=== PATIENT | female | born 1980 | race African-American/Black ===

== ENCOUNTER 2016-06-26 09:45 | Emergency (ER) | payer OTHER ==
[2016-06-26 10:09] VITALS: BP 134/75; PULSE 82; TEMP 98.7; BMI 28.6
[2016-06-26] MEDS ORDERED: IBUPROFEN 600 MG TABLET (FP) PO ONE ×2 (11:22→11:26)
--- NOTE | 2016-06-26 12:56 | PDOC ---
[id number] 4d THROAT PAIN, HEADACHE Time Seen by Provider: 06/26/16 11:03 History Source: Patient Exam Limitations: No Limitations - History of Present Illness Initial Comments: 06/26/16 13:31 36 yr female with c/o sore throat and sinus congestion for 3 days no fever or chills. Severity: mild Associated Symptoms: reports: cough Past History - Past Medical History Allergies/Adverse Reactions: Allergies Allergy/AdvReac Type Severity Reaction Status Date / Time No Known Allergies Allergy Verified 06/26/16 10:09 Home Medications: Ambulatory Orders Fluticasone Prop 0.05% Nasal [Flonase -] 1 - 2 spray NS DAILY #1 spray.pump Asthma: Yes - Psycho/Social/Smoking Cessation Hx Anxiety: No Suicidal Ideation: No Smoking Status: Yes Smoking History: Current every day smoker Have you smoked in the past 12 months: Yes Number of Cigarettes Smoked Daily: 10 Information on smoking cessation initiated: No 'Breaking Loose' booklet given: 04/09/16 Hx Alcohol Use: No Drug/Substance Use Hx: No Review of Systems - Review of Systems Able to Perform ROS?: Yes Is the patient limited Romanian proficient: No Constitutional: No: Symptoms Reported HEENTM: Yes: See HPI Respiratory: Yes: See HPI *Physical Exam - Vital Signs Last Vital Signs Temp Pulse Resp BP Pulse Ox 98.7 F 82 20 134/75 99 06/26/16 10:07 06/26/16 10:07 06/26/16 10:07 06/26/16 10:07 06/26/16 10:07 - Physical Exam General Appearance: Yes: Nourished, Appropriately Dressed HEENT: positive: EOMI, FRANCISCO, Normal ENT Inspection, TMs Normal, Pharynx Normal, Tonsillar Erythema, Nasal Congestion, Sinus Tenderness Neck: positive: Supple. negative: Lymphadenopathy (R), Lymphadenopathy (L) Respiratory/Chest: positive: Lungs Clear, Normal Breath Sounds Cardiovascular: positive: Regular Rhythm, Regular Rate Gastrointestinal/Abdominal: positive: Normal Bowel Sounds, Soft Musculoskeletal: positive: Normal Inspection Extremity: positive: Normal Capillary Refill, Normal Inspection, Normal Range of Motion Integumentary: positive: Normal Color, Dry, Warm Neurologic: positive: Fully Oriented, Alert, Normal Mood/Affect, Normal Response , Motor Strength / ED Treatment Course - ADDITIONAL ORDERS Additional order review: 06/26/16 11:30 Group A Strep Rapid Antigen - Final Throat - Medications Given in the ED: ED Medications Discontinued Medications Generic Name Dose Route Start Last Admin Trade Name Lino PRN Reason Stop Dose Admin Ibuprofen 600 mg 06/26/16 11:22 06/26/16 11:30 Motrin - PO 06/26/16 11:23 600 mg ONCE ONE Administration Medical Decision Making - Medical Decision Making 06/26/16 13:34 cc: sinus congestion, sinus tenderness, sore throat neg fever, neg nasal discharge, body aches for 3 days will check for strep non toxic *DC/Admit/Observation/Transfer Diagnosis at time of Disposition: Pharyngitis Qualifiers: Pharyngitis/tonsillitis etiology: other specified organisms Qualified Code(s): J02.8 - Acute pharyngitis due to other specified organisms - Discharge Dispostion Disposition: HOME Condition at time of disposition: Good - Prescriptions Prescriptions: Fluticasone Prop 0.05% Nasal [Flonase -] 1 - 2 spray NS DAILY #1 spray.pump - Referrals Referrals: Anai Lucio MD [Primary Care Provider] - - Patient Instructions Additional Instructions: drink pleanty of fluids to stay hydrated get pleanty of rest at home take motrin 600mg every 6hrs for fever or pain use flonase nasal spray as directed for nasal congestion and sinus pressure follow with your doctor in 2-3 days if no improvement - Post Discharge Activity Work/School Note: Back to Work
== END 2016-06-26 12:58 | disposition home or self-care (01) ==
LOC: JERFT 09:45
DX: J02.8 Acute pharyngitis due to other specified organisms (principal); F17.210 Nicotine dependence, cigarettes, uncomplicated; J45.909 Unspecified asthma, uncomplicated
CPT/HCPCS: 87070; 87430; 99281-25

== ENCOUNTER 2016-09-15 20:06 | Emergency (ER) | payer OTHER ==
[2016-09-15 20:13] VITALS: BMI 29.7
[2016-09-15 20:35] LABS: BASOPHIL 0.5 % (0-2.0); EOSINOPHIL 1.4 % (0-4.5); MCH 28.6 pg (25.7-33.7); MCHC 32.7 g/dl (32.0-36.0); MEAN CELL VOLUME 87.4 fl (80-96); MEAN PLT VOLUME 8.7 fl (7.5-11.1); NEUTROPHILS 73.9 % (42.8-82.8); PLATELET COUNT 249 K/MM3 (134-434); WHITE BLOOD COUNT 9.9 K/mm3 (4.0-10.0)
[2016-09-15 20:43] LABS: URINE APPEARANCE SLCLOUDY; URINE BILIRUBIN NEGATIVE (NEGATIVE); URINE COLOR YELLOW; URINE GLUCOSE (UA) NEGATIVE (NEGATIVE); URINE KETONE NEGATIVE (NEGATIVE); URINE NITRITE NEGATIVE (NEGATIVE); URINE UROBILINOGEN NEGATIVE E.U./dl (0.2-1.0)
[2016-09-15 20:44] LABS: URINE BLOOD 3+ (NEGATIVE); URINE LEUK ESTERASE TRACE (NEGATIVE); URINE PROTEIN 1+ (NEGATIVE)
[2016-09-15 20:47] LABS: URINE MUCUS RARE; URINE RBC 6 /hpf (0-3); URINE WBC 4 /hpf (3-5)
[2016-09-15 21:10] LABS: ALBUMIN 3.6 g/dl (3.4-5.0); ANION GAP 10 (8-16); BILIRUBIN,TOTAL 0.2 mg/dL (0.2-1.0); CALCIUM 8.4 mg/dL (8.5-10.1); CO2 24 mmol/L (21-32); CREATININE 0.6 mg/dL (0.55-1.02); GLUCOSE,RANDOM 81 mg/dL (74-106); SGOT/AST 9 U/L (15-37); SGPT/ALT 14 U/L (12-78); TOT PROT 6.9 g/dl (6.4-8.2)
[2016-09-15 21:25] LABS: ALK PHOS 57 U/L (45-117)
--- NOTE | 2016-09-15 23:25 | PDOC ---
History of Present Illness <Lynsey Stanton - Last Filed: 09/16/16 00:59> - General History Source: Patient Exam Limitations: No Limitations - History of Present Illness Initial Comments: 09/16/16 00:16 Patient is a 36 year old female, 6 weeks , with a significant past medical history of asthma and fibroids who presents to the ED with vaginal bleeding. She states that she was grocery shopping today and picked up her shopping bags as she was carrying them up the stairs she felt a moisture on her underwear. She notes that she rushed into the bathroom and notices that her underwear had blood on them. She reports abdominal cramps. She has prior history of vaginal bleeding due to her fibroids. She has an [facility]IL[facility] appointment in [address] Gupta <Lisa Medeiros - Last Filed: 09/16/16 01:02> - General Chief Complaint: Vaginal Bleeding Stated Complaint: 7WKS/VAGINAL BLEEDING Time Seen by Provider: 09/15/16 20:28 Past History - Past Medical History Asthma: Yes - Psycho/Social/Smoking Cessation Hx Anxiety: No Suicidal Ideation: No Smoking Status: Yes Smoking History: Current every day smoker Have you smoked in the past 12 months: Yes Number of Cigarettes Smoked Daily: 10 Information on smoking cessation initiated: No 'Breaking Loose' booklet given: 04/09/16 Hx Alcohol Use: No Drug/Substance Use Hx: No <Lynsey Stanton - Last Filed: 09/16/16 00:59> <Lisa Medeiros - Last Filed: 09/16/16 01:02> - Past Medical History Allergies/Adverse Reactions: Allergies Allergy/AdvReac Type Severity Reaction Status Date / Time No Known Allergies Allergy Verified 09/15/16 20:12 Home Medications: Ambulatory Orders Fluticasone Prop 0.05% Nasal [Flonase -] 1 - 2 spray NS DAILY #1 spray.pump Review of Systems - Review of Systems Able to Perform ROS?: Yes Comments:: 09/16/16 00:17 GENERAL/CONSTITUTIONAL: No fever or chills. No weakness. HEAD, EYES, EARS, NOSE AND THROAT: No change in vision. No ear pain or discharge. No sore throat. CARDIOVASCULAR: No chest pain or shortness of breath. RESPIRATORY: No cough, wheezing, or hemoptysis. GASTROINTESTINAL: No nausea, vomiting, diarrhea or constipation. GENITOURINARY: +vaginal bleeding. No dysuria, frequency, or change in urination. MUSCULOSKELETAL: No joint or muscle swelling or pain. No neck or back pain. SKIN: No rash NEUROLOGIC: No headache, vertigo, loss of consciousness, or change in strength/ sensation. ENDOCRINE: No increased thirst. No abnormal weight change. HEMATOLOGIC/LYMPHATIC: No anemia, easy bleeding, or history of blood clots. ALLERGIC/IMMUNOLOGIC: No hives or skin allergy. <Lisa Medeiros - Last Filed: 09/16/16 01:02> *Physical Exam - Vital Signs Last Vital Signs Temp Pulse Resp BP Pulse Ox 98.6 F 93 H 18 117/57 99 09/15/16 20:12 09/15/16 20:12 09/15/16 20:12 09/15/16 20:12 09/15/16 20:12 <Lynsey Stanton - Last Filed: 09/16/16 00:59> - Vital Signs Last Vital Signs Temp Pulse Resp BP Pulse Ox 98.6 F 93 H 18 117/57 99 09/15/16 20:12 09/15/16 20:12 09/15/16 20:12 09/15/16 20:12 09/15/16 20:12 - Physical Exam Comments: 09/16/16 00:17 GENERAL: Awake, alert, and fully oriented, in no acute distress HEAD: No signs of trauma EYES: PERRLA, EOMI, sclera anicteric, conjunctiva clear ENT: Auricles normal inspection, hearing grossly normal, nares patent, oropharynx clear without exudates. Moist mucosa NECK: Normal ROM, supple, no lymphadenopathy, JVD, or masses LUNGS: Breath sounds equal, clear to auscultation bilaterally. No wheezes, and no crackles HEART: Regular rate and rhythm, normal S1 and S2, no murmurs, rubs or gallops ABDOMEN: Soft, nontender, normoactive bowel sounds. No guarding, no rebound. No masses EXTREMITIES: Normal range of motion, no edema. No clubbing or cyanosis. No cords, erythema, or tenderness NEUROLOGICAL: Cranial nerves II through XII grossly intact. Normal speech, normal gait SKIN: Warm, Dry, normal turgor, no rashes or lesions noted. <MalaLisa - Last Filed: 09/16/16 01:02> ED Treatment Course - LABORATORY CBC & Chemistry Diagram: 09/15/16 20:29 09/15/16 20:29 - ADDITIONAL ORDERS Additional order review: Laboratory Results 09/15/16 09/15/16 09/15/16 20:29 20:29 20:29 Sodium 140 Potassium 3.7 Chloride 106 Carbon Dioxide 24 Anion Gap 10 BUN 17 Creatinine 0.6 D Creat Clearance w eGFR > 60 Random Glucose 81 Calcium 8.4 L Total Bilirubin 0.2 AST 9 L ALT 14 Alkaline Phosphatase 57 Total Protein 6.9 Albumin 3.6 Beta HCG, Quant 49151.1 Urine Color Yellow Urine Appearance Slcloudy Urine pH 5.0 Ur Specific [place] 1.029 Urine Protein 1+ H Urine Glucose (UA) Negative Urine Ketones Negative Urine Blood 3+ H Urine Nitrite Negative Urine Bilirubin Negative Urine Urobilinogen Negative Ur Leukocyte Esterase Trace H Urine RBC 6 Urine WBC 4 Ur Epithelial Cells Many Urine Mucus Rare Blood Type O POSITIVE Antibody Screen Negative 09/15/16 20:29 RBC 3.70 MCV 87.4 MCHC 32.7 RDW 17.0 H D MPV 8.7 Neutrophils % 73.9 D Lymphocytes % 18.1 D Monocytes % 6.1 Eosinophils % 1.4 Basophils % 0.5 - RADIOLOGY Radiology Studies Ordered: Category Date Time Status <14WKS US [US] Stat Ultrasound 09/15/16 22:08 Ordered <Lynsey Stanton - Last Filed: 09/16/16 00:59> - LABORATORY CBC & Chemistry Diagram: 09/15/16 20:29 09/15/16 20:29 - ADDITIONAL ORDERS Additional order review: Laboratory Results 09/15/16 09/15/16 09/15/16 20:29 20:29 20:29 Sodium 140 Potassium 3.7 Chloride 106 Carbon Dioxide 24 Anion Gap 10 BUN 17 Creatinine 0.6 D Creat Clearance w eGFR > 60 Random Glucose 81 Calcium 8.4 L Total Bilirubin 0.2 AST 9 L ALT 14 Alkaline Phosphatase 57 Total Protein 6.9 Albumin 3.6 Beta HCG, Quant 46813.1 Urine Color Yellow Urine Appearance Slcloudy Urine pH 5.0 Ur Specific [place] 1.029 Urine Protein 1+ H Urine Glucose (UA) Negative Urine Ketones Negative Urine Blood 3+ H Urine Nitrite Negative Urine Bilirubin Negative Urine Urobilinogen Negative Ur Leukocyte Esterase Trace H Urine RBC 6 Urine WBC 4 Ur Epithelial Cells Many Urine Mucus Rare Blood Type O POSITIVE Antibody Screen Negative 09/15/16 20:29 RBC 3.70 MCV 87.4 MCHC 32.7 RDW 17.0 H D MPV 8.7 Neutrophils % 73.9 D Lymphocytes % 18.1 D Monocytes % 6.1 Eosinophils % 1.4 Basophils % 0.5 - RADIOLOGY Radiology Studies Ordered: 09/16/16 00:34 THIS IS A PRELIMINARYREPORT FROM [facility] EXAM: Ultrasound first trimester and pelvic duplex INDICATION: Threatened FINDINGS: Ultrasound : Uterus is anteverted and measures 8.6centimeters in length. There is a single live IUP with estimated gestational age of 6weeks and 3days. There is a normal heart rate of 117beats per minute. There is no subchorionic bleed. The right ovary measures 3.7centimeters in length and contains a 1.8 cm simple cyst. The left ovary measures 2.3centimeters in length and appears normal. There is no significant free fluid. Pelvic duplex: There is normal vertebral and venous flow in both ovaries. IMPRESSION: Live IUP with estimated age of 6 weeks 3 days, without definite abnormalities. THIS DOCUMENT HAS BEEN ELECTRONICALLY SIGNED Dedrick Bridges MD <Lisa Medeiros - Last Filed: 09/16/16 01:02> Medical Decision Making - Medical Decision Making 09/16/16 00:37 Patient Name: Catarina Gallegos THIS IS A PRELIMINARYREPORT FROM [facility] EXAM: Ultrasound first trimester and pelvic duplex IMAGES: 57 INDICATION: Threatened DATE OF SERVICE: 2016-09-15 23:15:32.0 COMPARISON: none FINDINGS: Ultrasound : Uterus is anteverted and measures 8.6centimeters in length. There is a single live IUP with estimated gestational age of 6weeks and 3days. There is a normal heart rate of 117beats per minute. There is no subchorionic bleed. The right ovary measures 3.7centimeters in length and contains a 1.8 cm simple cyst. The left ovary measures 2.3centimeters in length and appears normal. There is no significant free fluid. Pelvic duplex: There is normal vertebral and venous flow in both ovaries. IMPRESSION: Live IUP with estimated age of 6 weeks 3 days, without definite abnormalities. THIS DOCUMENT HAS BEEN ELECTRONICALLY SIGNED <Lynsey Stanton - Last Filed: 09/16/16 00:59> *DC/Admit/Observation/Transfer - Discharge Dispostion Admit: No <Lynsey Stanton - Last Filed: 09/16/16 00:59> - Attestations Scribe Attestion: 09/16/16 00:17 Documentation prepared by ILA Corado, acting as medical staff specialist for Lynsey Stanton MD. <Lisa Medeiros - Last Filed: 09/16/16 01:02> Diagnosis at time of Disposition: Threatened - Discharge Dispostion Disposition: HOME Condition at time of disposition: Stable - Referrals Referrals: Jarred Munoz [Primary Care Provider] - - Patient Instructions Printed Discharge Instructions: Threatened - Post Discharge Activity Work/School Note: Back to Work
[2016-09-16 01:08] VITALS: BP 124/64; PULSE 84; TEMP 98.3
== END 2016-09-16 01:05 | disposition home or self-care (01) ==
LOC: JER 20:06
DX: O20.0 Threatened abortion (principal); Z3A.01 Less than 8 weeks gestation of pregnancy
CPT/HCPCS: 36415; 76801-TC; 76817-TC; 80053; 81003; 81015; 84702; 85025; 86850; 86900; 86901; 99283-25

== ENCOUNTER 2016-12-14 02:55 | Inpatient (IN) | payer OTHER ==
[2016-12-14] MEDS: DEXTROSE 5%-LACTATED RINGERS 1,000 ML IV SCH (03:05)
[2016-12-14] MEDS ORDERED: IBUPROFEN 600 MG TABLET (FP) PO PRN ×3 (03:34→14:32)
[2016-12-14] MEDS: AMPICILLIN - 100 ML IVPB SCH ×4 (03:35→22:27)
[2016-12-14] MEDS ORDERED: MISOPROSTOL 200 MCG TABLET PV ONE (03:36)
[2016-12-14] MEDS ORDERED: ELECTROLYTE-148 SOLN 1,000 ML IV SCH (03:45)
--- NOTE | 2016-12-14 03:45 | PN ---
Delivery - Delivery Vaginal Delivery: Spontaneous EBL (cc): 50 Remarks - Remarks Remarks: Patient brought by ambulance c/o lower abdominal crampa associated with rupture of membrane. She has a gestation of 19 weeks, EDC 05/09/17. Upon examination fetus was a the perineum with feet presentation. Patient was asked to push for expulsion of the head. Cytotec was then placed in the vagina for placental delivery.
[2016-12-14 04:04] LABS: MCH 27.6 pg (25.7-33.7); MCHC 32.1 g/dl (32.0-36.0); MEAN PLT VOLUME 9.6 fl (7.5-11.1); PLATELET COUNT 203 K/MM3 (134-434); RDW 19.2 % (11.6-15.6)
[2016-12-14 04:08] LABS: WHITE BLOOD COUNT 32.5 K/mm3 (4.0-10.0)
[2016-12-14 04:10] LABS: URINE APPEARANCE CLEAR; URINE BILIRUBIN NEGATIVE (NEGATIVE); URINE COLOR YELLOW; URINE GLUCOSE (UA) 1+ (NEGATIVE); URINE KETONE 2+ (NEGATIVE); URINE LEUK ESTERASE NEGATIVE (NEGATIVE); URINE NITRITE NEGATIVE (NEGATIVE); URINE UROBILINOGEN 2.0 E.U/dl E.U./dl (0.2-1.0)
[2016-12-14 04:11] LABS: URINE BLOOD 1+ (NEGATIVE); URINE PROTEIN 1+ (NEGATIVE)
[2016-12-14 04:16] LABS: INR 1.11 (0.82-1.09); PROTHROMBIN TIME (PATIENT) 12.2 SEC (9.98-11.88); URINE HYALINE CAST 1 /lpf; URINE MUCUS MANY; URINE RBC 1 /hpf (0-3); URINE WBC 2 /hpf (3-5)
[2016-12-14 04:19] LABS: ACTIVATED PTT 26.9 SECONDS (26.9-34.4)
[2016-12-14 04:21] LABS: URINE MARIJUANA THC POSITIVE ng/ml (CUTOFF=50)
[2016-12-14 04:27] LABS: ALBUMIN 2.9 g/dl (3.4-5.0); ANION GAP 14 (8-16); BILIRUBIN,TOTAL 0.5 mg/dL (0.2-1.0); CALCIUM 8.4 mg/dL (8.5-10.1); CO2 21 mmol/L (21-32); CREATININE 0.5 mg/dL (0.55-1.02); GLUCOSE,RANDOM 113 mg/dL (74-106); SGOT/AST 16 U/L (15-37); SGPT/ALT 18 U/L (12-78); TOT PROT 6.6 g/dl (6.4-8.2)
[2016-12-14 04:28] LABS: ALK PHOS 95 U/L (45-117)
[2016-12-14 04:38] LABS: HIV 1 & 2 AB NEGATIVE; HIV 1 AGp24 NEGATIVE
[2016-12-14 04:55] VITALS: BMI 31.9
[2016-12-14] MEDS ORDERED: TUBERCULIN PPD 5 TU/0.1ML SYRINGE (IN PATIENT USE ONLY) ID ONE (07:15)
[2016-12-14] MEDS ORDERED: MEPERIDINE HCL CARPU-JECT 50 MG/1 ML DISP.SYRIN IM ONE (07:25)
[2016-12-14] MEDS: D5W-LR W/ 20 UNITS OXYTOCIN 1,000 ML IV SCH (10:30)
[2016-12-14 14:10] LABS: PLATELET ESTIMATE ADEQUATE (NORMAL)
[2016-12-14 14:11] LABS: ANISOCYTOSIS 1+; HYPOCHROMIA 1+
[2016-12-14] MEDS ORDERED: BENZOCAINE 28 GM HEMORRHOIDAL OINTMENT TP PRN (14:21)
[2016-12-14] MEDS ORDERED: BENZOCAINE 20% 57 GM BOTTLE TP PRN (14:21)
[2016-12-14] MEDS ORDERED: WITCH HAZEL 50% (TUCKS) 40 PAD/JAR PAD TP PRN (14:21)
[2016-12-14] MEDS ORDERED: ACETAMINOPHEN 325 MG TABLET (FP) PO PRN (14:21)
[2016-12-14] MEDS ORDERED: BISACODYL 10 MG SUPP.RECT RC PRN (14:21)
[2016-12-14] MEDS ORDERED: METHYLERGONOVINE MALEATE 0.2 MG/1 ML AMP IM PRN (14:21)
[2016-12-14] MEDS ORDERED: CLINDAMYCIN 900 MG PREMIX IVPB 50 ML IVPB ONE (14:24)
[2016-12-14] MEDS ORDERED: D5W-LR W/ 20 UNITS OXYTOCIN 1,000 ML IV SCH (14:30)
[2016-12-14] MEDS ORDERED: GENTAMICIN SO4 *PEDIATRIC* 20 MG/2 ML VIAL IVPB SCH (14:30)
--- NOTE | 2016-12-14 14:34 | PN ---
Progress Note (short form) - Note Progress Note: 36 yo P3 s/p spontaneous delivery of 19wk non viable fetus, placenta remained in citu, circumferentialy detached placenta on the exam, cervix 6cm open, no active bleed Ring forceps used to assist in manual removal of Placenta, placenta to pathology Placenta removed intact, uterus contracted, Pitocin IV continued Exam c/w empty contracted uterus EBL 50cc
[2016-12-14] MEDS ORDERED: GENTAMICIN IVPB ONE (15:00)
[2016-12-14] MEDS ORDERED: SODIUM CHLORIDE IVPB ONE (15:00)
[2016-12-14] MEDS ORDERED: KETOROLAC TROMETHAMINE 30 MG/1 ML VIAL IVPB ONE (17:00)
[2016-12-14] MEDS ORDERED: PT OWN MED DRAWER 7, Y5N ONE (20:15)
[2016-12-14] MEDS ORDERED: AMPICILLIN - 2 GM in SODIUM CHLORIDE 100 ML IVPB SCH (21:20)
[2016-12-14] MEDS: FERROUS SO4 325 MG TABLET (FP) PO SCH (21:44)
[2016-12-14] MEDS: AMPICILLIN - 2 GM in SODIUM CHLORIDE 100 ML IVPB SCH (22:29)
[2016-12-15] MEDS: DEXTROSE 5%-LACTATED RINGERS 1,000 ML IV SCH ×2 (01:33→12:46)
[2016-12-15] MEDS: AMPICILLIN - 2 GM in SODIUM CHLORIDE 100 ML IVPB SCH ×3 (01:34→18:47)
[2016-12-15 06:45] LABS: BASOPHIL 0.1 % (0-2.0); EOSINOPHIL 0.3 % (0-4.5); MCH 28.2 pg (25.7-33.7); MCHC 32.8 g/dl (32.0-36.0); MEAN CELL VOLUME 86.1 fl (80-96); MEAN PLT VOLUME 9.5 fl (7.5-11.1); NEUTROPHILS 90.2 % (42.8-82.8); PLATELET COUNT 166 K/MM3 (134-434); RDW 19.2 % (11.6-15.6); WHITE BLOOD COUNT 26.7 K/mm3 (4.0-10.0)
--- NOTE | 2016-12-15 08:00 | PN ---
Post Progress Note - Subjective Subjective: 36 YO P3 FEELS WELL, NOT DIZZY, no chest pain or palpitations voiding, tolerating PO, no chills Post Day: 1 Type of Delivery: (19 week loss) Vital Signs: Vital Signs Temperature 98.9 F 12/15/16 06:00 Pulse Rate 76 12/15/16 06:00 Respiratory Rate 18 12/15/16 06:00 Blood Pressure 105/66 12/15/16 06:00 O2 Sat by Pulse Oximetry (%) Breast Exam: Yes: Soft Uterus: Yes: Fundus Firm Abdomen/GI: Yes: Abdomen soft, Tolerating PO Lochia: Yes: Rubra Lochia, amount: Small Extremities: Yes: Calves non-tender Perineum: Yes: Intact Activity: Ambulating - Labs Labs: CBC WBC 26.7 K/mm3 (4.0-10.0) H 12/15/16 05:45 RBC 2.85 M/mm3 (3.60-5.2) L 12/15/16 05:45 Hgb 8.0 GM/dL (10.7-15.3) L D 12/15/16 05:45 Hct 24.5 % (32.4-45.2) L D 12/15/16 05:45 MCV 86.1 fl (80-96) 12/15/16 05:45 MCH 28.2 pg (25.7-33.7) 12/15/16 05:45 MCHC 32.8 g/dl (32.0-36.0) 12/15/16 05:45 RDW 19.2 % (11.6-15.6) H 12/15/16 05:45 Plt Count 166 K/MM3 (134-434) 12/15/16 05:45 MPV 9.5 fl (7.5-11.1) 12/15/16 05:45 Neutrophils % 90.2 % (42.8-82.8) H 12/15/16 05:45 Lymphocytes % 6.0 % (8-40) L D 12/15/16 05:45 Monocytes % 3.4 % (3.8-10.2) L 12/15/16 05:45 Eosinophils % 0.3 % (0-4.5) D 12/15/16 05:45 Basophils % 0.1 % (0-2.0) D 12/15/16 05:45 Band Neutrophils 17.0 % (0-10) H 12/14/16 03:25 Differential Comment Manual diff done 12/14/16 03:25 Platelet Estimate Adequate (NORMAL) 12/14/16 03:25 Hypochromic-Microcytic 1+ 12/14/16 03:25 Anisocytosis 1+ 12/14/16 03:25 Assessment/Plan 36 yo P3 s/p 2nd trimester loss vss, Afibrile doing well Rh+, no need for RhoGam Plan d/c today once repeat CBC at 6pm confirms WBC trending down Instructed on strict vaginal rest for 6 weeks and follow up with PMD in 2 weeks
[2016-12-15] MEDS ORDERED: PT OWN MED DRAWER 7, Y5N ONE (08:20)
[2016-12-15] MEDS: D5W-LR W/ 20 UNITS OXYTOCIN 1,000 ML IV SCH (09:46)
[2016-12-15] MEDS: FERROUS SO4 325 MG TABLET (FP) PO SCH (10:32)
[2016-12-15 18:32] LABS: MCH 27.8 pg (25.7-33.7); MCHC 32.2 g/dl (32.0-36.0); MEAN CELL VOLUME 86.3 fl (80-96); MEAN PLT VOLUME 9.6 fl (7.5-11.1); PLATELET COUNT 175 K/MM3 (134-434); RDW 19.1 % (11.6-15.6); WHITE BLOOD COUNT 21.1 K/mm3 (4.0-10.0)
[2016-12-15 19:12] LABS: ANISOCYTOSIS 1+; PLATELET ESTIMATE ADEQUATE (NORMAL)
[2016-12-15 19:41] VITALS: BP 120/56; PULSE 68; TEMP 99.1
[2016-12-15] MEDS ORDERED: SENNOSIDES/DOCUSATE COMBO (SENNA PLUS) TABLET (UD) PO PRN (22:00)
--- NOTE | 2016-12-19 09:15 | PATH ---
Surgical Pathology Report Patient Name: OFELIA DUGGAN [facility]. Rec. #: [id number] /Age/Gender: 1980 (Age: 36) / F Account: [id number] Location: 4 PEDS/ADOL Taken: 12/14/2016 Received: 12/16/2016 Reported: 12/19/2016 Physicians: Nikki Mendoza M.D. Specimen(s) Received A: PLACENTA B: FETUS ( DEMISE) Clinical History 19.1 weeks' gestation, denies any other medical problems , , stillborn, demise Previous x3 Final Diagnosis A. PLACENTA, DELIVERY: TORN AND DISRUPTED IMMATURE PLACENTA, 150 GRAMS, WITH ACUTE CHORIOAMNIONITIS, 3 VESSEL UMBILICAL CORD WITH ACUTE FUNISITIS, AND EXTENSIVE INTERVILLOUS HEMORRHAGE. B. FETUS ( DEMISE): IMMATURE AUTOLYZED FETUS, 163 GRAMS, WITH NO DEFINITE INTERNAL OR EXTERNAL CONGENITAL DEFECTS IDENTIFIED. Electronically Signed Jewel Bailey M.D. Gross Description A. received fresh labeled "placenta," is a 150 g, 14.0 x 10.0 x 2.3 cm markedly torn and disrupted placenta with attached membranes and a small portion of attached umbilical cord. The membranes are yang, translucent with focal opacities and insert marginally. The portion of attached umbilical cord measures 0.9 cm in length and 0.4 cm in diameter. The cord inserts eccentrically, 3 cm to the nearest margin. No true knots or strictures are identified. Cut surface of the umbilical cord reveals 3 vessels. The surface is giang blue with minimal fibrin deposition and small caliber vessels. The maternal surface is red-brown, markedly fragmented and disrupted. Sectioning reveals abundant foci of hemorrhage throughout the placenta. Cath Lab Technologist sections are submitted in 5 cassettes as follows: 1-membrane rolls and umbilical cord; 8-1-rppl-thickness sections of placenta. B. Received fresh labeled " demise," is a 163 g markedly macerated fetus. The fetus measures 15 cm from crown to rump and 22 cm from crown to heel. Each foot measures 2.7 cm from heel to toe. The eyelids are open and ears are possibly low set. The upper and lower extremities appear normal and well proportioned. Each hand and foot displays 5 digits. There are no axial defects and the lumbosacral spine is intact. The internal organs are markedly autolyzed. The heart appears to be normally positioned. No definite cardiac or lung abnormalities are noted. The external genitalia cannot be determined due to the marked maceration. The brain is yang and gelatinous. Cath Lab Technologist sections are submitted in 4 cassettes as follows: 1-bisected heart; 2-lungs, liver, intestines; 3-kidneys and adrenals; 4-brain. 12/17/201612/17/2016
== END 2016-12-15 19:45 | disposition home or self-care (01) | DRG 544 ==
LOC: JLDR 02:55 → J4S 16:06
PROVIDERS: ADMIT Obstetrics & Gynecology; ATTEND Obstetrics & Gynecology
PROC: 10D17ZZ Extraction of Products of Conception, Retained, Via Natural or Artificial Opening (ICD-10-PCS; principal; 2016-12-14)
DX: O03.9 Complete or unspecified spontaneous abortion without complication (principal)
CPT/HCPCS: 36415; 59409; 80053; 80307; 81003; 81015; 85025; 85610; 85730; 86593; 86762; 86850; 86900; 86901; 87340; 87389; 88307-TC; 88309-TC

== ENCOUNTER 2017-03-17 01:09 | Emergency (ER) | payer OTHER ==
[2017-03-17 01:56] VITALS: BP 126/71; PULSE 75; TEMP 98.8; BMI 29.7
== END 2017-03-17 02:37 | disposition left against medical advice (07) ==
LOC: SUPCPDRO 01:09 → JER 01:09
DX: Z53.21 Procedure and treatment not carried out due to patient leaving prior to being seen by health care provider (principal)
CPT/HCPCS: 99281-25

== ENCOUNTER 2017-03-17 11:36 | Emergency (ER) | payer OTHER ==
[2017-03-17 11:41] VITALS: BP 111/66; PULSE 79; TEMP 98.5; BMI 29.7
--- NOTE | 2017-03-17 12:13 | PDOC ---
History of Present Illness <Julianna Dean - Last Filed: 03/17/17 16:42> - General History Source: Patient Exam Limitations: No Limitations - History of Present Illness Initial Comments: 03/17/17 13:09 A 36 y/o F [id number] at 5w2d (by FDLMP on Feb 13) presents with a c/o vaginal bleeding. Patient states that last night around 1230am, she was at home and felt a sudden painless gush of vaginal bleeding. She states it was not enough blood to soak a pad, and she saw a blood clot. After that episode, she did not have any more vaginal bleeding. She came to the ED last night, but was told to return in the morning when the facility technician would be available. Last coitus was 2 days ago. Her FDLMP was Feb 13 2017. She saw her FORENSIC ACCOUNTANT, Dr. Rolando Gupta in the office last week on Friday. He was unable to visualize the on TVUS at the time. He performed a serum Beta HCG on Friday and . Patient had a miscarriage at 21w in December 2016. She underwent induction for vaginal delivery. She states she was told she had the miscarriage because of an infection, but did not pursue a autopsy and workup. Patient denies fever, chills, n/v/c/d, SOB, CP, abd pain or current vaginal bleeding. 03/17/17 13:26 Timing/Duration: resolved prior to arrival Severity: mild Associated Symptoms: reports: denies symptoms <Paul Baptiste - Last Filed: 03/17/17 17:19> - General Chief Complaint: Vaginal Bleeding Stated Complaint: REVISIT, FOLLOW UP Time Seen by Provider: 03/17/17 11:55 Past History <Julianna Dean - Last Filed: 03/17/17 16:42> - Past Medical History Asthma: No Cancer: No Cardiac Disorders: No Diabetes: No HTN: No Seizures: No Thyroid Disease: No - Surgical History Orthopedic Surgery: Yes (lf shoulder) - Reproductive History LMP comment: Feb 13 2017 Is Patient Now?: Yes (#): 8 Para: 7 Spontaneous : 1 (at 21 wks in December 2016) Comment:: 03/17/17 13:15 prior C-sectionx3 at term; 3 elective terminations done by d&cx3 - Suicide/Smoking/Psychosocial Hx Smoking Status: Yes Smoking History: Never smoked Have you smoked in the past 12 months: No Number of Cigarettes Smoked Daily: 10 Information on smoking cessation initiated: No 'Breaking Loose' booklet given: 04/09/16 Hx Alcohol Use: No Drug/Substance Use Hx: No Substance Use Type: None Hx Substance Use Treatment: No <Paul Baptiste - Last Filed: 03/17/17 17:19> - Past Medical History Allergies/Adverse Reactions: Allergies Allergy/AdvReac Type Severity Reaction Status Date / Time No Known Allergies Allergy Verified 03/17/17 11:38 Home Medications: Ambulatory Orders Iron 18 mg PO DAILY 03/17/17 Vit #108/Iron/FA [ One Tablet] 1 each PO DAILY 03/17/17 Review of Systems - Review of Systems Is the patient limited Iranian proficient: No All Other Systems: Reviewed and Negative <Paul Baptiste - Last Filed: 03/17/17 17:19> *Physical Exam - Vital Signs Last Vital Signs Temp Pulse Resp BP Pulse Ox 98.5 F 79 18 111/66 100 03/17/17 11:38 03/17/17 11:38 03/17/17 11:38 03/17/17 11:38 03/17/17 11:38 <Julianna Dean - Last Filed: 03/17/17 16:42> - Vital Signs Last Vital Signs Temp Pulse Resp BP Pulse Ox 98.5 F 79 18 111/66 100 03/17/17 11:38 03/17/17 11:38 03/17/17 11:38 03/17/17 11:38 03/17/17 11:38 - Physical Exam General Appearance: Yes: Nourished, Appropriately Dressed Female Pelvic Exam: positive: normal external exam, cervical os closed. negative: vaginal bleeding Gastrointestinal/Abdominal: positive: Soft. negative: Tender <Paul Baptiste - Last Filed: 03/17/17 17:19> ED Treatment Course - LABORATORY CBC & Chemistry Diagram: 03/17/17 13:40 03/17/17 13:40 - ADDITIONAL ORDERS Additional order review: Laboratory Results 03/17/17 13:40 Sodium 139 Potassium 4.0 D Chloride 107 Carbon Dioxide 26 D Anion Gap 6 L BUN 16 D Creatinine 0.6 Creat Clearance w eGFR > 60 Random Glucose 92 Calcium 8.7 Total Bilirubin 0.5 AST 10 L D ALT 18 Alkaline Phosphatase 67 D Total Protein 7.2 Albumin 3.7 D Beta HCG, Quant 5936.3 03/17/17 13:40 RBC 3.85 D MCV 84.0 MCHC 31.7 L RDW 17.9 H MPV 9.2 Neutrophils % 61.2 D Lymphocytes % 27.9 D Monocytes % 8.3 D Eosinophils % 1.6 D Basophils % 1.0 D - RADIOLOGY Radiograph Interpretation: EXAM#: TYPE/EXAM: RESULT: [id number] US/TRANSVAGINAL US PREG Transvaginal obstetrical ultrasound CLINICAL INFORMATION: 5-6 weeks by dates, bleeding the exam demonstrates an intrauterine fluid structure probably representing a true gestational sac with a mean sac diameter of 0.8 cm corresponding to an approximate age of 5 weeks 4 days. No yolk sac or embryonic pole is identified at this time. A 1.9 cm spherical isoechoic focus is seen within the right ovary possibly representing a cyst with intraluminal debris/blood and less likely representing a solid hypovascular lesion. The left ovary appears unremarkable. There is no Doppler evidence of ovarian torsion, sensitivity 70%. No free intraperitoneal fluid is seen. IMPRESSION: A small intrauterine fluid structure is seen probably representing a true gestational sac at approximately 5 weeks 4 days. No yolk sac or embryonic pole is identified at this time. Correlate with beta hCG levels and close follow-up sonography. A 1.9 cm focus is noted within the right ovary probably representing a corpus luteum cyst with intraluminal debris/blood and less likely a solid lesion. Correlate with 2-4 week follow-up sonography. Reported By: Juan Avila MD 03/17/17 1632 <Julianna Dean - Last Filed: 03/17/17 16:42> - LABORATORY CBC & Chemistry Diagram: 03/17/17 13:40 03/17/17 13:40 <Paul Baptiste - Last Filed: 03/17/17 17:19> Medical Decision Making - Medical Decision Making 03/17/17 16:42 Dr. Gupta, passenger elevator operator, was called at the office at this time requesting a call back <Julianna Dean - Last Filed: 03/17/17 16:42> *DC/Admit/Observation/Transfer - Attestations Scribe Attestion: 03/17/17 16:40 Documentation prepared by Julianna Dean, acting as clinical laboratory medical director for Paul Baptiste DO <Julianna Dean - Last Filed: 03/17/17 16:42> - Discharge Dispostion Admit: No <Paul Baptiste - Last Filed: 03/17/17 17:19> Diagnosis at time of Disposition: Threatened - Discharge Dispostion Disposition: HOME Condition at time of disposition: Unchanged/Unknown - Referrals Referrals: Jarred Munoz [Primary Care Provider] - Rolando Gupta MD [Staff Physician] - - Patient Instructions Printed Discharge Instructions: DI for Threatened Additional Instructions: See Dr Gupta on Friday- Return to us if bleeding or cramping gets worse.
[2017-03-17 13:51] LABS: EOSINOPHIL 1.6 % (0-4.5); MCH 26.6 pg (25.7-33.7); MCHC 31.7 g/dl (32.0-36.0); MEAN PLT VOLUME 9.2 fl (7.5-11.1); NEUTROPHILS 61.2 % (42.8-82.8); PLATELET COUNT 245 K/MM3 (134-434); RDW 17.9 % (11.6-15.6); WHITE BLOOD COUNT 5.5 K/mm3 (4.0-10.0)
[2017-03-17 14:10] LABS: ALBUMIN 3.7 g/dl (3.4-5.0); ANION GAP 6 (8-16); BILIRUBIN,TOTAL 0.5 mg/dL (0.2-1.0); CALCIUM 8.7 mg/dL (8.5-10.1); CO2 26 mmol/L (21-32); CREATININE 0.6 mg/dL (0.55-1.02); GLUCOSE,RANDOM 92 mg/dL (74-106); SGOT/AST 10 U/L (15-37); SGPT/ALT 18 U/L (12-78); TOT PROT 7.2 g/dl (6.4-8.2)
[2017-03-17 14:25] LABS: ALK PHOS 67 U/L (45-117)
== END 2017-03-17 17:30 | disposition home or self-care (01) ==
LOC: JER 11:36
DX: O20.0 Threatened abortion (principal); Z3A.01 Less than 8 weeks gestation of pregnancy
CPT/HCPCS: 36415; 76817-TC; 80053; 84702; 85025; 99281-25

== ENCOUNTER 2017-03-28 12:12 | Emergency (ER) | payer OTHER ==
[2017-03-28 12:16] VITALS: TEMP 98.1; BMI 29.7
--- NOTE | 2017-03-28 13:01 | PDOC ---
History of Present Illness - General Chief Complaint: Vaginal Bleeding Stated Complaint: POSSIBLE MISCARRIAGE Time Seen by Provider: 03/28/17 12:35 History Source: Patient - History of Present Illness Timing/Duration: reports: constant Past History - Past Medical History Allergies/Adverse Reactions: Allergies Allergy/AdvReac Type Severity Reaction Status Date / Time No Known Allergies Allergy Verified 03/28/17 12:15 Home Medications: Ambulatory Orders Iron 18 mg PO DAILY 03/17/17 Asthma: No Cancer: No Cardiac Disorders: No Diabetes: No HTN: No Seizures: No Thyroid Disease: No Other medical history: DENIES. - Surgical History Abdominal Surgery: Yes Orthopedic Surgery: Yes (lf shoulder) - Reproductive History Is Patient Now?: Yes (#): 7 Para: 3 Therapeutic (s) & number: (3) Spontaneous : 1 (at 21 wks in December 2016) - Suicide/Smoking/Psychosocial Hx Smoking Status: Yes Smoking History: Never smoked Have you smoked in the past 12 months: No Number of Cigarettes Smoked Daily: 10 'Breaking Loose' booklet given: 04/09/16 Hx Alcohol Use: No Drug/Substance Use Hx: No Substance Use Type: None Hx Substance Use Treatment: No Review of Systems - Review of Systems Constitutional: No: Fever ABD/GI: Yes: Abdominal cramping. No: Nausea, Vomiting : No: Dysuria, Flank Pain *Physical Exam - Vital Signs Last Vital Signs Temp Pulse Resp BP Pulse Ox 98.1 F 77 18 124/74 100 03/28/17 12:13 03/28/17 12:13 03/28/17 12:13 03/28/17 12:13 03/28/17 12:13 - Physical Exam General Appearance: Yes: Appropriately Dressed. No: Apparent Distress HEENT: positive: Normal Voice Neck: positive: Supple Respiratory/Chest: negative: Respiratory Distress Female Pelvic Exam: positive: cervical os closed, vaginal bleeding. negative: CMT Gastrointestinal/Abdominal: positive: Soft. negative: Tender Integumentary: positive: Dry, Warm Neurologic: positive: Fully Oriented, Alert, Normal Mood/Affect ED Treatment Course - RADIOLOGY Radiology Studies Ordered: Category Date Time Status TRANSVAGINAL US PREG [US] Stat Ultrasound 03/28/17 12:41 Ordered Medical Decision Making - Medical Decision Making 03/28/17 12:53 36-year-old female, (s/p 1 spon AB and 2 elective AB), ~6 by dates, "sac " in uterus on ultrasound in [facility] office 4 days ago per pt, here with sudden onset vaginal bleeding that started 2 hours ago with vague lower abdominal pain. No clots, dysuria, nausea, vomiting, fever or chills. See exam Possible spon AB ?early IUP on US this week in Dr Gupta's office per pt Stable w/ significant vag bleed and small clots -T&S -beta -UA -US 03/28/17 12:57 03/28/17 16:36 US read as ges sac in endometrial cavity c/w 5 weeks, 3 days, no yolk sac or pole, possible early IUP. Beta >1855, was 5936 on labs 03/17. Clinical picture most likely represent spontaneous AB. Patient informed of findings and will follow-up with her OB on Friday. Reasons to return discussed with patient *DC/Admit/Observation/Transfer Diagnosis at time of Disposition: Spontaneous - Discharge Dispostion Disposition: HOME Condition at time of disposition: Good - Referrals Referrals: Jarred Munoz [Primary Care Provider] - - Patient Instructions Printed Discharge Instructions: Miscarriage Additional Instructions: Your ultrasound showed a gestational sac in your uterus, no yolk sac or pole seen. Your beta today was 1855 down from almost 6000 last week. This most likely will resents spontaneous and you will need to follow-up with your OB on Friday.
[2017-03-28 13:21] LABS: URINE APPEARANCE CLOUDY; URINE BILIRUBIN NEGATIVE (NEGATIVE); URINE BLOOD 3+ (NEGATIVE); URINE GLUCOSE (UA) NEGATIVE (NEGATIVE); URINE KETONE NEGATIVE (NEGATIVE); URINE NITRITE NEGATIVE (NEGATIVE); URINE UROBILINOGEN NEGATIVE mg/dL (0.2-1.0)
[2017-03-28 13:22] LABS: URINE PROTEIN 1+ (NEGATIVE)
[2017-03-28 13:26] LABS: URINE RBC 1056 /hpf (0-3); URINE WBC 13 /hpf (3-5)
[2017-03-28 13:27] LABS: URINE COLOR PINK
[2017-03-28 16:43] VITALS: BP 127/64; PULSE 63
[2017-03-28 19:49] LABS: URINE LEUK ESTERASE Negative (NEGATIVE)
--- NOTE | 2017-03-31 22:09 | PDOC ---
Patient Follow-up (Call Back) - Post ED Follow - Up Condition at time of discharge: Good Disposition at time of original discharge: HOME Reason for Call Back: Abnwl. Microbiology (Spoke with pt. States she is still having urinary symptoms, frequency. States her urine "smells bad". Micro shows E.coli. Will treat at this time. Keflex prescribed and sent to her pharmacy.)
== END 2017-03-28 16:59 | disposition home or self-care (01) ==
LOC: JER 12:12 → SUPCPDRO 12:12 → JER 16:59
DX: O03.4 Incomplete spontaneous abortion without complication (principal); Z3A.01 Less than 8 weeks gestation of pregnancy
CPT/HCPCS: 36415; 76817-TC; 81003; 81015; 84702; 86850; 86900; 86901; 87086; 87186; 99283-25

== ENCOUNTER 2017-05-11 13:02 | Emergency (ER) | payer OTHER ==
[2017-05-11 13:12] VITALS: BP 122/58; PULSE 89; TEMP 98.7; BMI 30.5
[2017-05-11] MEDS ORDERED: ONDANSETRON 4 MG/2 ML VIAL IVPUSH STA (13:22)
--- NOTE | 2017-05-11 13:28 | PDOC ---
History of Present Illness - General Chief Complaint: Vaginal Bleeding Stated Complaint: BLEEDING () Time Seen by Provider: 05/11/17 13:16 History Source: Patient Exam Limitations: No Limitations - History of Present Illness Travel History: No Initial Comments: 05/11/17 13:23 36 yr female 2 spontaneous miscarriages, 4 elective abortions presents to ER with positive home preg test and light spotting started this am. Pt denies fever, no abd pain or cramping no back pain . 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 Timing/Duration: reports: intermittent Quality: denies: mild, moderate, severe, aching, burning, cramping, dullness, fullness, sharpness, stabbing, throbbing, other Abdominal Pain Onset Location: denies: RUQ, LUQ, RLQ, LLQ, epigastric, periumbilical, suprapubic, generalized abdomen, flank, unknown, other Past History - Past Medical History Allergies/Adverse Reactions: Allergies Allergy/AdvReac Type Severity Reaction Status Date / Time No Known Allergies Allergy Verified 05/11/17 13:11 Home Medications: Ambulatory Orders NK [No Known Home Medication] 05/11/17 Asthma: No Cancer: No Cardiac Disorders: No COPD: No Diabetes: No HTN: No Seizures: No Thyroid Disease: No - Surgical History Abdominal Surgery: Yes Orthopedic Surgery: Yes (lf shoulder) - Reproductive History (#): 7 Para: 3 Therapeutic (s) & number: (3) Spontaneous : 1 (at 21 wks in December 2016) - Suicide/Smoking/Psychosocial Hx Smoking Status: Yes Smoking History: Never smoked Have you smoked in the past 12 months: No Number of Cigarettes Smoked Daily: 10 'Breaking Loose' booklet given: 04/09/16 Hx Alcohol Use: No Drug/Substance Use Hx: No Substance Use Type: None Hx Substance Use Treatment: No Abd/GI Specific PMHX - Complaint Specific PMHX Colitis: No Diverticulitis: No Gall Bladder Disease: No GERD: No Hepatitis: No Irritable Bowel Synd (IBS): No Pancreatitis: No GI Ulcer Disease: No Review of Systems - Review of Systems Able to Perform ROS?: Yes Is the patient limited Citizen Of [place] proficient: No Constitutional: No: Symptoms Reported HEENTM: No: Symptoms Reported Respiratory: No: Symptoms reported Cardiac (ROS): No: Symptoms Reported ABD/GI: No: Symptoms Reported : Yes: Symptoms Reported *Physical Exam - Vital Signs Last Vital Signs Temp Pulse Resp BP Pulse Ox 98.7 F 89 20 122/58 100 05/11/17 13:08 05/11/17 13:08 05/11/17 13:08 05/11/17 13:08 05/11/17 13:08 - Physical Exam General Appearance: Yes: Nourished, Appropriately Dressed HEENT: positive: EOMI, FRANCIS[place] Neck: positive: Supple Respiratory/Chest: positive: Lungs Clear, Normal Breath Sounds Cardiovascular: positive: Regular Rhythm, Regular Rate Female Pelvic Exam: positive: normal external exam, cervical os closed, normal adnexa. negative: CMT, discharge, vaginal bleeding Gastrointestinal/Abdominal: positive: Normal Bowel Sounds, Soft. negative: Tender Musculoskeletal: positive: Normal Inspection Extremity: positive: Normal Capillary Refill, Normal Inspection, Normal Range of Motion Integumentary: positive: Normal Color, Dry, Warm Neurologic: positive: medical psychotherapist II-XII NML intact, Fully Oriented, Alert, Normal Mood/ Affect ED Treatment Course - LABORATORY CBC & Chemistry Diagram: 05/11/17 13:45 - RADIOLOGY Radiology Studies Ordered: Category Date Time Status TRANSVAGINAL US PREG [US] Stat Ultrasound 05/11/17 13:22 Ordered Medical Decision Making - Medical Decision Making 05/11/17 13:39 cc: early with spotting, pt states "pink discharge spotting yesterday " had some scant blood this am no pain or cramping will r/o threatened AB, r/o UTI, GC/chlamydia 05/11/17 17:01 US results discussed in detail with pt she and her boyfriend are aware of the plan of care and the risks for spontaneous due to small subchorionic hemmorhage. 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
[2017-05-11] MEDS ORDERED: ONDANSETRON 4 MG/2 ML VIAL ONE (13:35)
[2017-05-11 13:52] LABS: MCH 28.3 pg (25.7-33.7); MEAN PLT VOLUME 8.8 fl (7.5-11.1); NEUTROPHILS 73.1 % (42.8-82.8); WHITE BLOOD COUNT 12.1 K/mm3 (4.0-10.0)
[2017-05-11 13:54] LABS: BASOPHIL 1.1 % (0-2.0); EOSINOPHIL 0.9 % (0-4.5); MCHC 32.8 g/dl (32.0-36.0); MEAN CELL VOLUME 86.5 fl (80-96); PLATELET COUNT 218 K/MM3 (134-434); RDW 20.2 % (11.6-15.6)
[2017-05-11 14:05] LABS: URINE APPEARANCE SLCLOUDY; URINE BILIRUBIN NEGATIVE (NEGATIVE); URINE BLOOD NEGATIVE (NEGATIVE); URINE COLOR YELLOW; URINE GLUCOSE (UA) NEGATIVE (NEGATIVE); URINE KETONE NEGATIVE (NEGATIVE); URINE NITRITE NEGATIVE (NEGATIVE); URINE PROTEIN NEGATIVE (NEGATIVE); URINE UROBILINOGEN NEGATIVE mg/dL (0.2-1.0)
[2017-05-11 14:23] LABS: INR 1.07 (0.82-1.09); PROTHROMBIN TIME (PATIENT) 12.1 SEC (9.98-11.88)
[2017-05-11 20:54] LABS: URINE LEUK ESTERASE Negative (NEGATIVE)
--- NOTE | 2017-05-13 19:17 | PDOC ---
Patient Follow-up (Call Back) - Post ED Follow - Up Condition at time of discharge: Good Disposition at time of original discharge: HOME Reason for Call Back: Abnwl. Microbiology (pt. seen here on 05/11/17 was + for GC not treated, - for chlamydia, Dr. Gupta called, he returned call given results of + GC, and results of transvagina US with sm subchorionic hemorrhage, 6 wks, 1 day, he will call patient and will treat patient for positive GC)
== END 2017-05-11 17:01 | disposition home or self-care (01) ==
LOC: JER 13:02
PROC: 3E033GC Introduction of Other Therapeutic Substance into Peripheral Vein, Percutaneous Approach (ICD-10-PCS; principal; 2017-05-11)
DX: O26.891 Other specified pregnancy related conditions, first trimester (principal); O20.0 Threatened abortion; O41.8X10 Other specified disorders of amniotic fluid and membranes, first trimester, not applicable or unspecified; Z3A.01 Less than 8 weeks gestation of pregnancy
CPT/HCPCS: 36415; 76817-TC; 81003; 84702; 84703; 85025; 85610; 86850; 86900; 86901; 87070; 87205; 87491; 87591; 96374; 99283-25

== ENCOUNTER 2017-07-24 13:19 | Emergency (ER) | payer OTHER ==
[2017-07-24 13:50] VITALS: TEMP 97.8; BMI 33.2
--- NOTE | 2017-07-24 15:49 | PDOC ---
History of Present Illness - General History Source: Patient Exam Limitations: No Limitations - History of Present Illness Initial Comments: 07/24/17 16:24 The patient is a 37 year old female, about 17 weeks with no significant PMH who presents to the emergency department with pelvic cramping overnight followed by vaginal bleeding now with some spotting. The patient described her pelvic cramping overnight as a 5/10 with associated bloating that woke her up. The patient states she went back to sleep and woke up this morning with significant bright red blood soaked on her sheets. The patient denies any blood clots but noticed what she describes as 'tissue-like'. The patient notes the pelvic cramping has resolved but currently experiencing spotting. The patient states she had an ultrasound about one week ago at our facility but we are unable to retrieve the report. The patient reports her most recent US was normal and denies placenta previa. The patient denies any recent trauma. The patient notes she is currently on her third day of antibiotics for her UTI. 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 Of note, the patient reports she tested positive for gonorrhea at 6 weeks . The patient denies chest pain, shortness of breath, headache and dizziness. Denies fever, chills, nausea, vomit, diarrhea and constipation. Denies dysuria, frequency, and urgency. Allergies: NKA Past surgical history: None reported. Social history: No reported alcohol, drug, or cigarette use. <Juliette Briones - Last Filed: 07/24/17 16:39> <Bonifacio Hrisch - Last Filed: 07/24/17 17:12> - General Chief Complaint: Vaginal Bleeding Stated Complaint: VAGINAL BLEEDING () Time Seen by Provider: 07/24/17 14:34 Past History <Juliette Briones - Last Filed: 07/24/17 16:39> - Past Medical History Asthma: No Cancer: No Cardiac Disorders: No CVA: No COPD: No DVT: No Dementia: No Diabetes: No HTN: No Seizures: No Thyroid Disease: No - Surgical History Abdominal Surgery: Yes Orthopedic Surgery: Yes (lf shoulder) - Reproductive History Is Patient Now?: Yes (#): 9 Para: 3 Therapeutic (s) & number: (3) Spontaneous : 5 - Immunization History Immunization Up to Date: Yes - Suicide/Smoking/Psychosocial Hx Smoking Status: Yes Smoking History: Never smoked Have you smoked in the past 12 months: No Number of Cigarettes Smoked Daily: 10 If you are a former smoker, when did you quit?: 1yr Information on smoking cessation initiated: No 'Breaking Loose' booklet given: 04/09/16 Hx Alcohol Use: No Drug/Substance Use Hx: No Substance Use Type: None Hx Substance Use Treatment: No <Bonifacio Hirsch - Last Filed: 07/24/17 17:12> - Past Medical History Allergies/Adverse Reactions: Allergies Allergy/AdvReac Type Severity Reaction Status Date / Time No Known Allergies Allergy Verified 07/24/17 13:44 Home Medications: Ambulatory Orders Ferrous Sulfate 325 mg PO DAILY 07/24/17 Nitrofurantoin Macrocrystal [Nitrofurantoin] 100 mg PO BID #14 capsule 07/24/17 Review of Systems - Review of Systems Constitutional: No: Chills, Fever Respiratory: No: Shortness of Breath Cardiac (ROS): No: Chest Pain : Yes: See HPI Integumentary: No: Bruising All Other Systems: Reviewed and Negative <Bonifacio Hirsch - Last Filed: 07/24/17 17:12> *Physical Exam - Vital Signs Last Vital Signs Temp Pulse Resp BP Pulse Ox 97.8 F 79 16 128/73 99 07/24/17 13:45 07/24/17 13:45 07/24/17 13:45 07/24/17 13:45 07/24/17 13:45 - Physical Exam Comments: 07/24/17 16:39 GENERAL: The patient is awake, alert, and fully oriented, in no acute distress. HEAD: Normal with no signs of trauma. EYES: Pupils equal, round and reactive to light, extraocular movements intact, sclera anicteric, conjunctiva clear with no pallor. ENT: Ears normal, nares patent, oropharynx clear without exudates. Moist mucous membranes. NECK: Normal range of motion, supple without lymphadenopathy, JVD, or masses. LUNGS: Breath sounds equal, clear to auscultation bilaterally. No wheeze/ crackles. HEART: Regular rate and rhythm, normal S1 and S2 without murmur or rub. ABDOMEN: Soft/nontender/nondistended. BS wnl. No guarding or rebound. No palpable masses. No hepatosplenomegaly. : (+) Dry blood in the vault. (+) Slow oozing on the bottom but otherwise closed os. (+) No tissue. EXTREMITIES: Normal range of motion, no edema. No clubbing or cyanosis. No cords, erythema, or tenderness. NEUROLOGICAL: Cranial nerves II through XII grossly intact. Normal speech, normal gait. PSYCH: Normal mood, normal affect. SKIN: Warm, Dry, normal turgor, no rashes or lesions noted. <Juliette Briones - Last Filed: 07/24/17 16:39> - Vital Signs Last Vital Signs Temp Pulse Resp BP Pulse Ox 97.8 F 79 16 128/73 99 07/24/17 13:45 07/24/17 13:45 07/24/17 13:45 07/24/17 13:45 07/24/17 13:45 <Bonifacio Hirsch - Last Filed: 07/24/17 17:12> ED Treatment Course - LABORATORY CBC & Chemistry Diagram: 07/24/17 16:10 07/24/17 16:10 <Juliette Briones - Last Filed: 07/24/17 16:39> - LABORATORY CBC & Chemistry Diagram: 07/24/17 16:10 07/24/17 16:10 - RADIOLOGY Radiology Studies Ordered: Category Date Time Status LIMITED US [US] Stat Ultrasound 07/24/17 15:48 Ordered <Bonifacio Hirsch - Last Filed: 07/24/17 17:12> Medical Decision Making - Medical Decision Making <Juliette Briones - Last Filed: 07/24/17 16:39> - Medical Decision Making 07/24/17 16:10 A portion of this note was documented by scribe services under my direction. I have reviewed the details of the note, within reason, and agree with the documentation with the following case summary and management plan written by me. 37-year-old female , LMP about 17 weeks presents with episode of pelvic cramping overnight followed by vaginal bleeding, now with some spotting but no pain or cramping. No fevers or chills. Last ultrasound was about one week ago and was reportedly within normal limits, no history of placenta previa. No trauma. Vital signs stable. Abdomen is benign. Pelvic exam performed with director data management shows slow ooze from closed os, small amount of blood involved. 37-year-old female with second trimester vaginal bleeding, rule out placental abnormalities versus miscarriage. Rh, hCG, UA ultrasound Reassess 07/24/17 17:04 hgb 10.8 which is baseline. Chem pending, HCG pending, RH pending. UA with blood, trace LE. Elevated RBC and WBC. Given , would treat empirically with abx. Urine culture sent. Sono results pending. Patient was signed out to the oncoming ED physician to follow-up the results, reassess the patient, and dispo accordingly. <Bonifacio Hirsch - Last Filed: 07/24/17 17:12> *DC/Admit/Observation/Transfer - Attestations Scribe Attestion: 07/24/17 16:40 Documentation prepared by Juliette Briones, acting as medical assistant ob gyn for Bonifacio Hirsch MD. <Juliette Briones - Last Filed: 07/24/17 16:39> <Bonifacio Hirsch - Last Filed: 07/24/17 17:12> Diagnosis at time of Disposition: Vaginal bleeding before 22 weeks gestation - Discharge Dispostion Condition at time of disposition: Stable - Prescriptions Prescriptions: Nitrofurantoin Macrocrystal [Nitrofurantoin] 100 mg PO BID #14 capsule - Referrals Referrals: Rolando Gupta MD [Staff Physician] - - Patient Instructions Printed Discharge Instructions: DI for Urinary Tract Infection (UTI), DI for Vaginal Bleeding During
[2017-07-24 16:27] LABS: BASO % 0.4 % (0-2.0); EOS % 0.8 % (0-4.5); HEMATOCRIT 31.9 % (32.4-45.2); HEMOGLOBIN 10.8 GM/dL (10.7-15.3); LYMPH % 14.7 % (8-40); MCH 31.3 pg (25.7-33.7); MEAN CELL VOLUME 92.3 fl (80-96); MEAN PLT VOLUME 9.5 fl (7.5-11.1); MONO % 6.6 % (3.8-10.2); NEUT % 77.5 % (42.8-82.8); PLATELET COUNT 230 K/MM3 (134-434); RBC 3.46 M/mm3 (3.60-5.2); RDW 14.2 % (11.6-15.6); WHITE BLOOD COUNT 10.4 K/mm3 (4.0-10.0)
[2017-07-24 16:29] LABS: URINE APPEARANCE CLOUDY; URINE BILIRUBIN NEGATIVE (NEGATIVE); URINE BLOOD 2+ (NEGATIVE); URINE COLOR YELLOW; URINE GLUCOSE (UA) NEGATIVE (NEGATIVE); URINE KETONE NEGATIVE (NEGATIVE); URINE LEUK ESTERASE TRACE (NEGATIVE); URINE NITRITE NEGATIVE (NEGATIVE); URINE PROTEIN NEGATIVE (NEGATIVE); URINE UROBILINOGEN NEGATIVE mg/dL (0.2-1.0)
[2017-07-24 16:35] LABS: EPI CELLS RARE /HPF (FEW); URINE BACTERIA RARE /hpf (NONE SEEN); URINE MUCUS RARE
[2017-07-24 16:40] LABS: INR 0.95 (0.82-1.09); PROTHROMBIN TIME (PATIENT) 10.7 SEC (9.98-11.88)
[2017-07-24 17:13] LABS: ALK PHOS 73 U/L (45-117); ANION GAP 8 (8-16); BILIRUBIN,TOTAL 0.2 mg/dL (0.2-1.0); BLOOD UREA NITROGEN 12 mg/dL (7-18); CALCIUM 8.2 mg/dL (8.5-10.1); CHLORIDE 108 mmol/L (98-107); CO2 23 mmol/L (21-32); CREATININE 0.4 mg/dL (0.55-1.02); GLUCOSE,RANDOM 89 mg/dL (74-106); POTASSIUM 3.9 mmol/L (3.5-5.1); SGOT/AST 9 U/L (15-37); SGPT/ALT 12 U/L (12-78); SODIUM 139 mmol/L (136-145); TOT PROT 6.4 g/dl (6.4-8.2)
--- NOTE | 2017-07-24 18:20 | PDOC ---
*Physical Exam - Vital Signs Last Vital Signs Temp Pulse Resp BP Pulse Ox 97.8 F 79 16 128/73 99 07/24/17 13:45 07/24/17 13:45 07/24/17 13:45 07/24/17 13:45 07/24/17 13:45 - Physical Exam Comments: 07/24/17 18:17 gen: [id number], nad abd: gravid ext: no edema ED Treatment Course - LABORATORY CBC & Chemistry Diagram: 07/24/17 16:10 07/24/17 16:10 - ADDITIONAL ORDERS Additional order review: Laboratory Results 07/24/17 07/24/17 07/24/17 16:10 16:10 16:10 PT with INR INR Sodium 139 Potassium 3.9 Chloride 108 H Carbon Dioxide 23 Anion Gap 8 BUN 12 Creatinine 0.4 L Creat Clearance w eGFR > 60 Random Glucose 89 Calcium 8.2 L Total Bilirubin 0.2 D AST 9 L ALT 12 Alkaline Phosphatase 73 Total Protein 6.4 Albumin 3.0 L Beta HCG, Quant 87273.5 Urine Color Urine Appearance Urine pH Ur Specific [place] Urine Protein Urine Glucose (UA) Urine Ketones Urine Blood Urine Nitrite Urine Bilirubin Urine Urobilinogen Ur Leukocyte Esterase Urine WBC (Auto) Urine RBC (Auto) Ur Epithelial Cells Urine Bacteria Urine Mucus Blood Type O POSITIVE Antibody Screen Negative 07/24/17 07/24/17 16:10 16:10 PT with INR 10.70 INR 0.95 Sodium Potassium Chloride Carbon Dioxide Anion Gap BUN Creatinine Creat Clearance w eGFR Random Glucose Calcium Total Bilirubin AST ALT Alkaline Phosphatase Total Protein Albumin Beta HCG, Quant Urine Color Yellow Urine Appearance Cloudy Urine pH 8.0 D Ur Specific [place] 1.021 Urine Protein Negative Urine Glucose (UA) Negative Urine Ketones Negative Urine Blood 2+ H Urine Nitrite Negative Urine Bilirubin Negative Urine Urobilinogen Negative Ur Leukocyte Esterase Trace Urine WBC (Auto) 18 Urine RBC (Auto) 34 Ur Epithelial Cells Rare Urine Bacteria Rare Urine Mucus Rare Blood Type Antibody Screen 07/24/17 16:10 RBC 3.46 L MCV 92.3 MCHC 34.0 RDW 14.2 D MPV 9.5 Neutrophils % 77.5 Lymphocytes % 14.7 D Monocytes % 6.6 Eosinophils % 0.8 Basophils % 0.4 Medical Decision Making - Medical Decision Making 07/24/17 18:17 pt signed out from the prior physician pending labs and ultrasound ultrasound shows 16wks 5 days fhr 115 O+ blood type labs reviewed and stable abx given for uti discussed all results with the patient states she was carrying heavy trays last night at work at [employer] and may have over stressed herself discussed pelvic rest discussed follow up with dr. cline discussed all reasons to return to the Ed answered all questions about bleeding and follow up with Dr. Cline Pt stable for d/c to home. *DC/Admit/Observation/Transfer Diagnosis at time of Disposition: Vaginal bleeding before 22 weeks gestation - Discharge Dispostion Disposition: HOME Condition at time of disposition: Stable Admit: No - Prescriptions Prescriptions: Nitrofurantoin Macrocrystal [Nitrofurantoin] 100 mg PO BID #14 capsule - Referrals Referrals: Rolando Cline MD [Staff Physician] - - Patient Instructions Printed Discharge Instructions: DI for Urinary Tract Infection (UTI), DI for Vaginal Bleeding During - Post Discharge Activity Forms/Work/School Notes: Back to Work
[2017-07-24 18:37] VITALS: BP 123/70; PULSE 74
== END 2017-07-24 18:46 | disposition home or self-care (01) ==
LOC: JER 13:19
DX: O26.892 Other specified pregnancy related conditions, second trimester (principal); O20.8 Other hemorrhage in early pregnancy; Z3A.17 17 weeks gestation of pregnancy
CPT/HCPCS: 36415; 76815-TC; 80053; 81003; 81015; 84702; 85025; 85610; 86850; 86900; 86901; 87086; 99283-25

== ENCOUNTER 2018-01-14 11:02 | Emergency (ER) | payer OTHER ==
[2018-01-14 11:12] VITALS: BP 121/60; PULSE 74; TEMP 98; BMI 32.4
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
== END 2018-01-14 11:45 | disposition home or self-care (01) ==
LOC: JERFT 11:02
DX: G54.0 Brachial plexus disorders (principal); F17.210 Nicotine dependence, cigarettes, uncomplicated
CPT/HCPCS: 99281-25

== ENCOUNTER 2018-09-22 10:17 | Inpatient (IN) | payer OTHER ==
--- NOTE | 2018-09-22 10:55 | PDOC ---
History of Present Illness - General Chief Complaint: Shortness of Breath Stated Complaint: SOB Time Seen by Provider: 09/22/18 10:54 - History of Present Illness Initial Comments: 09/22/18 11:56 The patient is a 38 year old female with no significant PMH who presents for evaluation of shortness of breath. The patient notes that she had a recent C- section done at [facility] 4 days ago. She states that over the past 1 day, she has been getting progressively short of breath with worsening dyspnea on exertion and orthopnea prompting her presentation to the ED for further evaluation. She notes associated chest tightness as well but denies any pleuritic chest pain. She otherwise denies fevers, chills, cough, nausea, vomiting, abdominal pain, headache, blurry vision, or changes with urination or bowel movements. Past History - Past Medical History Allergies/Adverse Reactions: Allergies Allergy/AdvReac Type Severity Reaction Status Date / Time No Known Allergies Allergy Verified 01/14/18 11:09 Home Medications: Ambulatory Orders Iron 2 tab PO DAILY 09/06/18 Asthma: No Cancer: No Cardiac Disorders: No CVA: No COPD: No DVT: No Dementia: No Diabetes: No HTN: No Seizures: No Thyroid Disease: No - Surgical History Abdominal Surgery: Yes Orthopedic Surgery: Yes (lf shoulder) - Reproductive History (#): 9 Para: 3 Therapeutic (s) & number: (3) Spontaneous : 2 - Immunization History Immunization Up to Date: Yes - Suicide/Smoking/Psychosocial Hx Smoking Status: Yes Smoking History: Former smoker Have you smoked in the past 12 months: No Number of Cigarettes Smoked Daily: 5 If you are a former smoker, when did you quit?: 1yr Information on smoking cessation initiated: No 'Breaking Loose' booklet given: 04/09/16 Hx Alcohol Use: No Drug/Substance Use Hx: No Substance Use Type: None Hx Substance Use Treatment: No Review of Systems - Review of Systems Comments:: 09/22/18 11:59 Constitutional: No fevers, chills, fatigue, malaise HEENT: No Rhinorrhea, nasal congestion, visual changes Cardiovascular: Chest tightness. No syncope, palpitations, lightheadedness Respiratory: SOB. No Cough, Hemoptysis, Gastrointestinal: No Abdominal pain, Nausea, Vomiting, Constipation, Diarrhea, Melena Genitourinary: No Dysuria, Frequency, Urgency, Hesitancy, Hematuria, Flank pain Musculoskeletal: No Myalgia, arthralgia Skin: No rashes, itching, bruising, pallor Neurologic: No Headache, Dizziness, Numbness, Weakness, or Tingling Psychiatric: No Hallucinations. No SI or HI *Physical Exam - Vital Signs Last Vital Signs Temp Pulse Resp BP Pulse Ox 97.9 F 82 18 159/80 97 09/22/18 10:20 09/22/18 10:20 09/22/18 10:20 09/22/18 10:20 09/22/18 10:20 - Physical Exam Comments: 09/22/18 12:00 General Appearance: Nourished. No Apparent Distress HEENT: No Pharyngeal Erythema, Tonsillar Exudate, Tonsillar Erythema Neck: No Cervical Lymphadenopathy Respiratory/Chest: Lungs Clear, Normal Breath Sounds. No Crackles, Rales, Rhonchi, Wheezing Cardiovascular: Regular Rhythm, Regular Rate. No Murmur, Gallops, Rubs Gastrointestinal/Abdominal: Normal Bowel Sounds, Soft. No Guarding, Rebound, Tenderness Musculoskeletal: No CVA Tenderness Extremity: 3+ pitting edema in the lower extremities bilaterally. Normal Capillary Refill Integumentary: Normal Color, Dry, Warm Neurologic: Fully Oriented, Alert, Normal Mood/Affect, Normal Response, ED Treatment Course - LABORATORY CBC & Chemistry Diagram: 09/22/18 11:30 09/22/18 11:30 Medical Decision Making - Medical Decision Making 09/22/18 12:00 The patient is a 38 year old female with no significant PMH who presents for evaluation of shortness of breath. Differential includes but is not limited to : Pre-eclampsia, Cardiomyopathy, PE, Pulmonary Edema, Infectious, Metabolic Derangement. Given the patient's history and physical exam, we will obtain a cbc, cmp, troponin, bnp, d-dimer, ekg, chest plain film, ldh, fibrinogen level to evaluate further. We will continue to monitor and reassess while here in the ED. 09/22/18 12:07 Bedside pulmonary US demonstrates a B-line predominant pattern worse on the left than the right. Bilateral pleural effusions Left > Right were noted as well. We discussed the case with Dr. Morrow with OB who is aware of the case. 09/22/18 18:17 CBC, cmp, troponin are unremarkable. BNP is elevated. D-dimer was elevated to 3000s and a Chest CTA was obtained which was negative for PE as read by our radiologist. Chest plain film demonstrated congestive findings. We discussed the case with Dr. Morrow who does not believe the patient is pre-eclamptic. We will treat the patient with lasix and she will require admission for further management. We discussed the case with the admitting team who accepted the patient for admission. *DC/Admit/Observation/Transfer Diagnosis at time of Disposition: Pulmonary edema Qualifiers: Chronicity: acute Qualified Code(s): J81.0 - Acute pulmonary edema - Discharge Dispostion Condition at time of disposition: Stable Decision to Admit order: Yes - Referrals - Patient Instructions - Post Discharge Activity
--- NOTE | 2018-09-22 11:18 | PDOC ---
Attending Attestation - Resident Resident Name: AvisBrownEfrem - ED Attending Attestation I have performed the following: I have examined & evaluated the patient, The case was reviewed & discussed with the resident, I agree w/resident's findings & plan, Exceptions are as noted - HPI HPI: 09/22/18 11:13 38 yo F with recent c section ( for repeat c section) 4/ post day 5 here with c/o sob, and leg swelling. orthopnea, exertional dyspnea , no h/o pe or dvt. c/o chest tightness, not plueritic. no h/o pe or dvt. no h/o htn during . no prior h/o eclempsia or preeclempsia. denies hubbard or blurry vision. no f/c no other complaints. feels both legs are swollen. - Physicial Exam PE: 09/22/18 11:16 awake alert lungs clear bilaterally heart rrr no mrg abd soft nt nd. incision cdi. ext pitting edema. bilat lower ext. skin warm and dry. alert oriented x 3. - Medical Decision Making 09/22/18 11:16 38 yo post day 5 wtih sob edema. hypertensive 159/89. differential anemia , cardiomyopathy , chf, pe eclempsia or . plan hellp labs, ekg cxr focused ED bedside echo cbc. will require bp control magnesium. consult ob 09/22/18 12:33 focused ED TTE performed , indication sob four views of heart obtained, psl pss, apical and subxiphoid no rv dilation, no rv strain pattern, RV < LV <1:1 ratio no pericardial effusion. overall good contractility ivc normal resp variation bilat lungs scanned using phased array probe anterior lung roldan b line predominant bilaterally lateral b lines bilat, bilat lung bases with pleural effusion. some air bronchograms. impression: normal tte, bilat pulm edema. with small plueral effusions. bilat doppler lower ext, r/o dvt indicatio post swelling bilat legs scanned using high frequency linear probe from common femoral above insertion of saphenous down past bifurcation to superficial femoral and deep femoral v, then popliteal vein past trifurcation . full compression at all sites , no visualization of clot, normal augmentation and resp variation. impression: no proximal DVT bilat lower extremities. recommend repeat in 5 - 7 days. 09/22/18 13:17 09/22/18 15:38 ct negative for pe. urine negative for protein. given lasix 20 mg , will admit miguelangel consulted. Heart Score/ECG Review #1 General ECG Interpretation: Sinus Rhythm, Normal Rate (70), Normal Intervals, No acute ischemic changes
[2018-09-22 11:47] LABS: BASO % 0.5 % (0-2.0); EOS % 1.9 % (0-4.5); HEMATOCRIT 27.3 % (32.4-45.2); HEMOGLOBIN 9.1 GM/dL (10.7-15.3); LYMPH % 12.9 % (8-40); MCH 28.3 pg (25.7-33.7); MCHC 33.2 g/dl (32.0-36.0); MEAN CELL VOLUME 85.1 fl (80-96); MEAN PLT VOLUME 9.2 fl (7.5-11.1); MONO % 6.9 % (3.8-10.2); NEUT % 77.8 % (42.8-82.8); PLATELET COUNT 320 K/MM3 (134-434); RBC 3.21 M/mm3 (3.60-5.2); RDW 17.4 % (11.6-15.6); WHITE BLOOD COUNT 10.9 K/mm3 (4.0-10.0)
[2018-09-22 12:09] LABS: N-TERMINAL BNP 1107.4 pg/ml (5-125)
[2018-09-22 12:10] LABS: ALBUMIN 2.8 g/dl (3.4-5.0); ALK PHOS 133 U/L (45-117); ANION GAP 5 MMOL/L (8-16); BILIRUBIN,TOTAL 0.3 mg/dL (0.2-1); BLOOD UREA NITROGEN 13 mg/dL (7-18); CALCIUM 8.5 mg/dL (8.5-10.1); CHLORIDE 110 mmol/L (98-107); CO2 28 mmol/L (21-32); CREATININE 0.6 mg/dL (0.55-1.3); GLUCOSE,RANDOM 85 mg/dL (74-106); POTASSIUM 4.2 mmol/L (3.5-5.1); SGOT/AST 26 U/L (15-37); SGPT/ALT 32 U/L (13-61); SODIUM 142 mmol/L (136-145); TOT PROT 6.3 g/dl (6.4-8.2)
[2018-09-22] MEDS ORDERED: MAGNESIUM SULF 50% (8.12 MEQ/2 ML-1 GM VIAL) IVPB ONE (13:11)
[2018-09-22] MEDS ORDERED: ALPRAZolam 0.25 MG TABLET PO ONE (13:19)
[2018-09-22] MEDS ORDERED: FUROSEMIDE 40 MG/4 ML INJECTABLE VIAL IVPUSH ONE (13:38)
[2018-09-22] MEDS ORDERED: FUROSEMIDE 40 MG/4 ML INJECTABLE VIAL ONE (13:44)
[2018-09-22] MEDS ORDERED: MAGNESIUM 1GM/D5W - 1 GM/100 ML IVPB IVPB ONE (13:44)
[2018-09-22] MEDS ORDERED: ALPRAZolam 0.25 MG TABLET ONE (13:44)
[2018-09-22 14:57] LABS: URINE APPEARANCE CLEAR; URINE BILIRUBIN NEGATIVE (NEGATIVE); URINE COLOR YELLOW; URINE GLUCOSE (UA) NEGATIVE (NEGATIVE); URINE KETONE NEGATIVE (NEGATIVE); URINE LEUK ESTERASE NEGATIVE (NEGATIVE); URINE NITRITE NEGATIVE (NEGATIVE); URINE PROTEIN NEGATIVE (NEGATIVE); URINE UROBILINOGEN 0.2 mg/dL (0.2-1.0)
[2018-09-22 14:58] LABS: EPI CELLS 13.3 /HPF (0-5/HPF); URINE BACTERIA 4.4 /hpf (NEGATIVE); URINE WBC 8.4 /hpf (0-5)
--- NOTE | 2018-09-22 16:38 | PN ---
Teaching Attending Note Name of Resident: Kimber Chakraborty ATTENDING PHYSICIAN STATEMENT I saw and evaluated the patient. I reviewed the resident's note and discussed the case with the resident. I agree with the resident's findings and plan as documented with exceptions below. SUBJECTIVE: 38 yof with PMHx of A5 (2 spontaneous abortions and 3 elective termination) , recent 09/17 at [facility], uncomplicated per-operative course, comes with worsening breath since yesterday. patient reports had severe shortness of breath yesterday, associated with orthopnea, PND, leg swelling, prompting her to come to the ED. Denies any fevers, chills, pleuritic chest pain, palpitations , dizziness, headache, vision changes, abdominal or urinary symptoms. s/p CT PE with bilateral pleural effusions. s/p lasix 20 mg IV in the ED with improved symptoms, (reports urinated "a lot") 12 point ROS done, neg except above. OBJECTIVE: Vital Signs Period Temp Pulse Resp BP Sys/Gunn Pulse Ox Last 24 Hr 97.9 F 79-82 18-18 154-159/80-84 97-99 Intake & Output 09/19/18 09/20/18 09/21/18 09/22/18 23:59 23:59 23:59 23:59 Weight 250 lb GENERAL: Awake, alert, and fully oriented, in no acute distress, able to speak in full sentences. HEAD: Normal with no signs of trauma. EYES: Pupils equal, round and reactive to light, extraocular movements intact, sclera anicteric, conjunctiva clear. No lid lag. EARS, NOSE, THROAT: Ears normal, nares patent, oropharynx clear without exudates. Moist mucous membranes. NECK: soft, supple, positive JVD noted LUNGS: decreased breath sounds at bases bilaterally, no rales or wheezing, good air entry otherwise HEART: Regular rate and rhythm, normal S1 and S2 ABDOMEN: Soft, obese, NT throughout, surgical incision with clean dressing, no surrounding erythema/discharge or tenderness MUSCULOSKELETAL: Normal range of motion at all joints. No bony deformities or tenderness. No CVA tenderness. UPPER EXTREMITIES: 2+ pulses, warm, well-perfused. No cyanosis. No clubbing. No peripheral edema. LOWER EXTREMITIES: 2+ pedal symmetric pitting edema bilaterally, positive pulses NEUROLOGICAL: AAOX3, power 5/5, sensation intact and symmetric, PERRL, EOMI, Cranial nerves II-XII intact. Normal speech.Gait not observed PSYCHIATRIC: Cooperative. Good eye contact. Appropriate mood and affect. SKIN: Warm, dry, normal turgor, no rashes or lesions noted, normal capillary refill. Home Medications Medication Instructions Recorded Iron 2 tab PO DAILY 09/06/18 Active Medications Furosemide (Lasix Injection -) 20 mg IVPB DAILY [facility] Heparin Sodium (Porcine) (Heparin -) 5,000 unit SQ BID [facility] Laboratory Results - last 24 hr 09/22/18 09/22/18 09/22/18 11:30 11:30 11:30 WBC 10.9 H RBC 3.21 L Hgb 9.1 L Hct 27.3 L D MCV 85.1 MCH 28.3 D MCHC 33.2 RDW 17.4 H Plt Count 320 D MPV 9.2 Absolute Neuts (auto) 8.5 H Neutrophils % 77.8 Lymphocytes % 12.9 Monocytes % 6.9 Eosinophils % 1.9 D Basophils % 0.5 Nucleated RBC % 0 Fibrinogen 448.0 D-Dimer 3960 H Sodium 142 Potassium 4.2 Chloride 110 H Carbon Dioxide 28 Anion Gap 5 L BUN 13 Creatinine 0.6 Creat Clearance w eGFR 112.49 Random Glucose 85 Calcium 8.5 Total Bilirubin 0.3 AST 26 ALT 32 Alkaline Phosphatase 133 H LD Total Creatine Kinase 272 H Creatine Kinase Index 1.1 CK-MB (CK-2) 3.1 Troponin I 0.02 B-Natriuretic Peptide Total Protein 6.3 L Albumin 2.8 L Urine Color Urine Appearance Urine pH Ur Specific [place] Urine Protein Urine Glucose (UA) Urine Ketones Urine Blood Urine Nitrite Urine Bilirubin Urine Urobilinogen Ur Leukocyte Esterase Urine WBC (Auto) Urine RBC (Auto) Urine Casts (Auto) U Epithel Cells (Auto) Urine Bacteria (Auto) 09/22/18 09/22/18 11:30 14:28 WBC RBC Hgb Hct MCV MCH MCHC RDW Plt Count MPV Absolute Neuts (auto) Neutrophils % Lymphocytes % Monocytes % Eosinophils % Basophils % Nucleated RBC % Fibrinogen D-Dimer Sodium Potassium Chloride Carbon Dioxide Anion Gap BUN Creatinine Creat Clearance w eGFR Random Glucose Calcium Total Bilirubin AST ALT Alkaline Phosphatase LD Total 455 H Creatine Kinase Creatine Kinase Index CK-MB (CK-2) Troponin I B-Natriuretic Peptide 1107.4 H Total Protein Albumin Urine Color Yellow Urine Appearance Clear Urine pH 6.0 D Ur Specific [place] 1.052 H Urine Protein Negative Urine Glucose (UA) Negative Urine Ketones Negative Urine Blood Large Urine Nitrite Negative Urine Bilirubin Negative Urine Urobilinogen 0.2 Ur Leukocyte Esterase Negative Urine WBC (Auto) 8.4 Urine RBC (Auto) 68.0 Urine Casts (Auto) 10.90 U Epithel Cells (Auto) 13.3 Urine Bacteria (Auto) 4.4 CTA chest results and images reviewed CXR images and results reviewed EKG NSR, sinus arrhythmia, no acute ST-T changes ASSESSMENT AND PLAN: 38 yof with recent , uncomplicated course admitted with dyspnea. -Dyspnea, r/o post cardiomyopathy vs pulmonary edema from aggressive volume resuscitation marcial-operatively vs Diastolic CHF (From HTN/LONI), clinical presentation not suggestive of eclampsia, PE ruled out -Uncontrolled HTN -Recent Plan: Responded well to IV lasix in ED.Continue 20 mg IV daily. Strict I/Os, daily weights, 2D echo. Hydralazine for BP control. Cardiology consult. OB Dr. Hussein consulted from ED, presentation not concerning for eclampsia. Admit to inpatient telemetry Plan discussed with patient in detail, all questions answered. Care co-ordinated with ED Total admit time 65 min.
[2018-09-22] MEDS ORDERED: DOCUSATE SODIUM 100 MG CAPSULE (FP) PO PRN (16:57)
[2018-09-22] MEDS ORDERED: hydrALAZINE HCL 20 MG/ML VIAL IVPUSH PRN (16:59)
--- NOTE | 2018-09-22 17:18 | HP ---
CHIEF COMPLAINT: SOB PCP: Merlin at [facility] HISTORY OF PRESENT ILLNESS: The patient is a 38 year old female who presented 5 days after c section () for SOB since yesterday. She noticed shortness of breath while sitting at home with baby, worse with lying flat. The patient also reports occasional palpitations. She had uncomplicated, full term . The patient denies SOB in the past, cardiac history, no DVT. She denies headache, dizziness, chest pain, vision problems, states that swelling in her legs hasn't diminished after yet. She only takes iron pills. 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 [employer] Family History: Father: , " stomach problem" mother: healthy children healthy Allergies No Known Allergies Allergy (Verified 01/14/18 11:09) HOME MEDICATIONS: Home Medications Medication Instructions Recorded Iron 2 tab PO DAILY 09/06/18 REVIEW OF SYSTEMS CONSTITUTIONAL: Absent: fever, chills, diaphoresis, generalized weakness, malaise, loss of appetite, weight change HEENT: Absent: rhinorrhea, nasal congestion, throat pain, throat swelling, difficulty swallowing, mouth swelling, visual changes CARDIOVASCULAR: peripheral edema Absent: chest pain, syncope, palpitations, irregular heart rate, lightheadedness , RESPIRATORY: orthopnea, shortness of breath Absent: cough, dyspnea with exertion, wheezing, stridor, hemoptysis GASTROINTESTINAL: Absent: abdominal pain, abdominal distension, nausea, vomiting, diarrhea, constipation, melena, hematochezia GENITOURINARY: Absent: dysuria, frequency, urgency, hesitancy, hematuria, flank pain, MUSCULOSKELETAL: Absent: myalgia, arthralgia, joint swelling, back pain, neck pain SKIN: Absent: rash, itching ENDOCRINE: Absent: unexplained weight gain, unexplained weight loss NEUROLOGIC: Absent: headache, focal weakness or paresthesias, dizziness, unsteady gait, seizure, mental status changes, PSYCHIATRIC: Absent: anxiety, depression PHYSICAL EXAMINATION Vital Signs - 24 hr 09/22/18 09/22/18 09/22/18 10:20 11:36 12:35 Temperature 97.9 F Pulse Rate 82 Pulse Rate [ 79 Left] Respiratory 18 18 Rate Blood Pressure 159/80 Blood Pressure 154/84 [Left Arm] O2 Sat by Pulse 97 97 99 Oximetry (%) GENERAL: Awake, alert, and fully oriented, in no acute distress. HEAD: Normal with no signs of trauma. EYES: Extraocular movements intact, sclera anicteric, conjunctiva clear. EARS, NOSE, THROAT: Oropharynx clear without exudates. Moist mucous membranes. NECK: Normal range of motion, supple without lymphadenopathy, JVD, or masses. LUNGS: Breath sounds equal, diminished to auscultation bilaterally at bases. No wheezes, and no crackles. No accessory muscle use. HEART: Regular rate and rhythm, normal S1 and S2 without murmur, rub or gallop, + JVD. ABDOMEN: Soft, nontender, not distended, normoactive bowel sounds, no guarding, no rebound. MUSCULOSKELETAL: Normal range of motion at all joints. No bony deformities or tenderness. No CVA tenderness. UPPER EXTREMITIES: No peripheral edema. LOWER EXTREMITIES: 1+ peripheral edema. NEUROLOGICAL: Normal speech, no facial asymmetry. Normal gait. PSYCHIATRIC: Cooperative. Good eye contact. Appropriate mood and affect. SKIN: Warm, dry, normal turgor, no rashes, dressing applied in lower abdomen over c section scar Laboratory Results - last 24 hr 09/22/18 09/22/18 09/22/18 11:30 11:30 11:30 WBC 10.9 H RBC 3.21 L Hgb 9.1 L Hct 27.3 L D MCV 85.1 MCH 28.3 D MCHC 33.2 RDW 17.4 H Plt Count 320 D MPV 9.2 Absolute Neuts (auto) 8.5 H Neutrophils % 77.8 Lymphocytes % 12.9 Monocytes % 6.9 Eosinophils % 1.9 D Basophils % 0.5 Nucleated RBC % 0 Fibrinogen 448.0 D-Dimer 3960 H Sodium 142 Potassium 4.2 Chloride 110 H Carbon Dioxide 28 Anion Gap 5 L BUN 13 Creatinine 0.6 Creat Clearance w eGFR 112.49 Random Glucose 85 Calcium 8.5 Total Bilirubin 0.3 AST 26 ALT 32 Alkaline Phosphatase 133 H LD Total Creatine Kinase 272 H Creatine Kinase Index 1.1 CK-MB (CK-2) 3.1 Troponin I 0.02 B-Natriuretic Peptide Total Protein 6.3 L Albumin 2.8 L Urine Color Urine Appearance Urine pH Ur Specific [place] Urine Protein Urine Glucose (UA) Urine Ketones Urine Blood Urine Nitrite Urine Bilirubin Urine Urobilinogen Ur Leukocyte Esterase Urine WBC (Auto) Urine RBC (Auto) Urine Casts (Auto) U Epithel Cells (Auto) Urine Bacteria (Auto) 09/22/18 09/22/18 11:30 14:28 WBC RBC Hgb Hct MCV MCH MCHC RDW Plt Count MPV Absolute Neuts (auto) Neutrophils % Lymphocytes % Monocytes % Eosinophils % Basophils % Nucleated RBC % Fibrinogen D-Dimer Sodium Potassium Chloride Carbon Dioxide Anion Gap BUN Creatinine Creat Clearance w eGFR Random Glucose Calcium Total Bilirubin AST ALT Alkaline Phosphatase LD Total 455 H Creatine Kinase Creatine Kinase Index CK-MB (CK-2) Troponin I B-Natriuretic Peptide 1107.4 H Total Protein Albumin Urine Color Yellow Urine Appearance Clear Urine pH 6.0 D Ur Specific [place] 1.052 H Urine Protein Negative Urine Glucose (UA) Negative Urine Ketones Negative Urine Blood Large Urine Nitrite Negative Urine Bilirubin Negative Urine Urobilinogen 0.2 Ur Leukocyte Esterase Negative Urine WBC (Auto) 8.4 Urine RBC (Auto) 68.0 Urine Casts (Auto) 10.90 U Epithel Cells (Auto) 13.3 Urine Bacteria (Auto) 4.4 ASSESSMENT/PLAN: The patient is a 38 year old female who presented 5 days after c section () for SOB since yesterday. Shortness of breath: - day 5, r/o cardiomyopathy, pre eclampsia, PE less likely -CTA negative for PE -lasix 20 mg IV done -ECHO ordered -will f/u Cardiology recommendations -strict I&O -daily weights -TSH HTN: 159/80 -no history of HTN -no home meds -will monitor, started Hydralazine PRN Anemia: -Hgb 9.1, -likely due to , c section blood loss -will cont Iron supplementation -iron studies ordered : -will consult OBGYN -dressing change -monitor for bleeding F/E/N: no/no changes/low sodium DVT PPX: -heparin sq Dispo: telemetry Problem List - Problem (1) Pulmonary edema Code(s): J81.1 - CHRONIC PULMONARY EDEMA Qualifiers: Chronicity: acute Qualified Code(s): J81.0 - Acute pulmonary edema (2) SOB (shortness of breath) Code(s): R06.02 - SHORTNESS OF BREATH (3) S/P Code(s): Z98.891 - HISTORY OF UTERINE SCAR FROM PREVIOUS SURGERY Visit type - Emergency Visit Emergency Visit: Yes ED Registration Date: 09/22/18 Care time: The patient presented to the Emergency Department on the above date and was hospitalized for further evaluation of their emergent condition. - New Patient This patient is new to me today: Yes Date on this admission: 09/22/18 - Critical Care Critical Care patient: No
[2018-09-22 17:59] VITALS: BMI 40.1
[2018-09-22] MEDS: FERROUS SO4 325 MG TABLET (FP) PO SCH (18:16)
[2018-09-22] MEDS: HEPARIN NA (PORCINE) 5,000 UNITS/ML 1ML VIAL SQ SCH (21:19)
[2018-09-22] MEDS ORDERED: HEPARIN NA (PORCINE) 5,000 UNITS/ML 1ML VIAL SQ SCH (22:00)
--- NOTE | 2018-09-23 00:20 | CONS ---
DATE OF CONSULTATION: 09/22/2018 This patient is a 38-year-old female, 9, para 4 with 4 previous sections. The last section was done on September 17, 2018, at [facility]. She presented to the ER today with complaints of shortness of breath and has dyspnea and had difficulty lying flat because of the shortness of breath. Denies any chest pain. No cough. PAST MEDICAL HISTORY: Significant for previous section and a history of mild asthma. No history of previous DVTs. PHYSICAL EXAMINATION: Vital Signs: Blood pressure on admission was 159/88, temperature was 97.9, pulse rate was 68. Weight is 256 pounds. Her respiratory rate is 18. Her repeat blood pressure was 154/77 and her pulse is 68. General: I saw her in the Telemetry Unit. She is not in any acute distress, resting easily and breathing easy without any effort. She does not complain of any headache, blurred vision, or right upper quadrant pain. Abdomen: Soft, nontender. No masses were palpable. Uterus was approximately 18 weeks' size, nontender. Incision was clean and healing well. Extremities: 2+ edema with no calf tenderness. Pelvic: Vagina had no active bleeding seen. IMPRESSION: Dyspnea, most likely secondary to fluid overload secondary to spinal anesthesia and use of oxytocin, which is an antidiuretic and causes fluid retention. There is no evidence of preeclampsia or hypertensive crisis. Advised Cardiology consult to rule out cardiomyopathy, judicial use of diuretics, and monitor blood pressure and vital signs. 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 MIGEL LOBATO M.D. [id number]
[2018-09-23] MEDS: HEPARIN NA (PORCINE) 5,000 UNITS/ML 1ML VIAL SQ SCH (06:19)
[2018-09-23 06:33] LABS: BASO % 0.6 % (0-2.0); EOS % 2.7 % (0-4.5); HEMATOCRIT 26.7 % (32.4-45.2); HEMOGLOBIN 8.9 GM/dL (10.7-15.3); LYMPH % 13.9 % (8-40); MCHC 33.2 g/dl (32.0-36.0); MEAN CELL VOLUME 84.5 fl (80-96); MEAN PLT VOLUME 9.4 fl (7.5-11.1); MONO % 8.3 % (3.8-10.2); NEUT % 74.5 % (42.8-82.8); PLATELET COUNT 294 K/MM3 (134-434); RBC 3.16 M/mm3 (3.60-5.2); RDW 17.4 % (11.6-15.6); WHITE BLOOD COUNT 9.7 K/mm3 (4.0-10.0)
[2018-09-23 07:18] LABS: ALBUMIN 2.4 g/dl (3.4-5.0); ALK PHOS 128 U/L (45-117); ANION GAP 5 MMOL/L (8-16); BILIRUBIN,TOTAL 0.3 mg/dL (0.2-1); BLOOD UREA NITROGEN 15 mg/dL (7-18); CHLORIDE 110 mmol/L (98-107); CO2 26 mmol/L (21-32); CREATININE 0.6 mg/dL (0.55-1.3); GLUCOSE,RANDOM 84 mg/dL (74-106); PHOSPHOROUS 3.3 mg/dL (2.5-4.9); SGOT/AST 22 U/L (15-37); SGPT/ALT 31 U/L (13-61); SODIUM 141 mmol/L (136-145)
[2018-09-23] MEDS: FERROUS SO4 325 MG TABLET (FP) PO SCH (08:08)
[2018-09-23 08:23] VITALS: BP 138/79; PULSE 87; TEMP 98.3
--- NOTE | 2018-09-23 08:47 | PN ---
Teaching Attending Note Name of Resident: Kimber Chakraborty ATTENDING PHYSICIAN STATEMENT I saw and evaluated the patient. I reviewed the resident's note and discussed the case with the resident. I agree with the resident's findings and plan as documented. SUBJECTIVE: OBJECTIVE: Vital Signs Temperature 98.3 F 09/23/18 08:20 Pulse Rate 87 09/23/18 08:20 Respiratory Rate 20 09/23/18 08:23 Blood Pressure 138/79 09/23/18 08:20 O2 Sat by Pulse Oximetry (%) 99 09/23/18 08:23 Patient feels improved HEENT: Mm moist, no anemia NECK: No JVd No bruit CHEST: Minimal basal crepts CVS: S1S2 R no m/g/r ABD: Obese , non tender Bs + s/p Post Patum EXT: edema feet B/L VALUATION CONSULTANT: AOX3 non focal LABS: CBC, BMP 09/23/18 05:30 09/23/18 05:30 MEDS: Active Medications Docusate Sodium (Colace -) 100 mg PO Q12H PRN PRN Reason: CONSTIPATION Ferrous Sulfate (Feosol -) 325 mg PO BIDWM [facility] Last Admin: 09/23/18 08:08 Dose: 325 mg Furosemide (Lasix Injection -) 20 mg IVPB DAILY [facility] Last Admin: 09/23/18 09:20 Dose: 20 mg Heparin Sodium (Porcine) (Heparin -) 5,000 unit SQ TID [facility] Last Admin: 09/23/18 06:19 Dose: 5,000 unit Hydralazine HCl (Apresoline Injection -) 10 mg IVPUSH Q6H PRN PRN Reason: HYPERTENSION Last Admin: 09/22/18 18:16 Dose: 10 mg ECHO: Normal EF; mild to moderate Ar, Mr and TR (ppor quality) ASSESSMENT AND PLAN:38 year old female who presented 5 days after c section (09/17/18) for SOB since yesterday. She noticed shortness of breath while sitting at home with baby, worse with lying flat. elevated BNP, no acute ST T changes responded to IV Lasix Problem List - Problems (1) SOB (shortness of breath) Assessment/Plan: post concerned of PE and Post Cardiomyopathy, CT chest -ve for PE, elevated BNP, ECHO normal EF poor quality mild to moderate, AR TR and MR , discussed with Cardiology compression, recommended unlikely Post cardiomyopathy , most likely volume over load during delivery recommended Po diuretics on Dc once patient is Euvolumic, patient feels very comfortable since she recived IV lasix able to sleep on her back , patient feels comfortable normal EKG trop I and hemodynamically stable will DC her onPo lasix 20 mg daily , low salt Diet wt reduction and F/U iwth Dr johnson in a wk for re evaluation. Code(s): R06.02 - SHORTNESS OF BREATH (2) Pulmonary edema Assessment/Plan: Due to volume over load normal ECHO resolved Code(s): J81.1 - CHRONIC PULMONARY EDEMA Qualifiers: Chronicity: acute Qualified Code(s): J81.0 - Acute pulmonary edema (3) Anemia Assessment/Plan: Post partumcont Po iron Code(s): D64.9 - ANEMIA, UNSPECIFIED (4) Obesity (BMI 30-39.9) Assessment/Plan: Cont nutrition consult Code(s): E66.9 - OBESITY, UNSPECIFIED
[2018-09-23] MEDS ORDERED: FUROSEMIDE 40 MG/4 ML INJECTABLE VIAL IVPB SCH (10:00)
--- NOTE | 2018-09-23 11:20 | CON.CARD ---
Consult Consult Specialty:: Cardiology Referred by:: Medicine Reason for Consultation:: shortness of breath - History of Present Illness Chief Complaint: shortness of breath History of Present Illness: 38F h/o recent C section at [facility] 09/17 uncomplicated p/w shortness of breath. Started day prior to admission associated with orthopnea, PND, leg sweling. No chest pain, palps, dizziness. Symptoms improved with IV lasix, receieved one dose of hydralazine yesterday for BP. - Past Medical History ...LMP: 02/14/17 ...: No - Past Surgical History Past Surgical History: Yes: (x 3) - Alcohol/Substance Use Hx Alcohol Use: No - Smoking History Smoking history: Former smoker Have you smoked in the past 12 months: No Aproximately how many cigarettes per day: 5 If you are a former smoker, when did you quit?: 1yr Home Medications - Allergies Allergies/Adverse Reactions: Allergies Allergy/AdvReac Type Severity Reaction Status Date / Time No Known Allergies Allergy Verified 01/14/18 11:09 - Home Medications Home Medications: Ambulatory Orders Iron 2 tab PO DAILY 09/06/18 Family Disease History - Family Disease History Family History: Unremarkable Review of Systems - Review of Systems Constitutional: reports: No Symptoms Eyes: reports: No Symptoms HENT: reports: No Symptoms Neck: reports: No Symptoms Cardiovascular: reports: No Symptoms Respiratory: reports: No Symptoms Gastrointestinal: reports: No Symptoms Genitourinary: reports: No Symptoms Musculoskeletal: reports: No Symptoms Integumentary: reports: No Symptoms Neurological: reports: No Symptoms Endocrine: reports: No Symptoms Hematology/Lymphatic: reports: No Symptoms Psychiatric: reports: No Symptoms Vital Signs: Vital Signs Temperature 98.3 F 09/23/18 08:20 Pulse Rate 87 09/23/18 08:20 Respiratory Rate 20 09/23/18 08:23 Blood Pressure 138/79 09/23/18 08:20 O2 Sat by Pulse Oximetry (%) 99 09/23/18 08:23 Constitutional: Yes: Well Nourished, No Distress, Calm Eyes: Yes: Conjunctiva Clear, EOM Intact HENT: Yes: Atraumatic, Normocephalic Neck: Yes: Supple, Trachea Midline Respiratory: Yes: Regular, CTA Bilaterally Gastrointestinal: Yes: Normal Bowel Sounds, Soft Cardiovascular: Yes: Regular Rate and Rhythm JVD: No Carotid Bruit: No PMI: Non-Displaced Heart Sounds: Yes: S1, S2 Musculoskeletal: No: Back Pain Extremities: No: Cold Edema: No Peripheral Pulses WNL: Yes Peripheral Pulses: 2+ Left Doralis Pedis, 2+ Right Dorsalis Pedis Integumentary: No: Jaundice Neurological: Yes: Alert, Oriented Psychiatric: No: Agitated - Other Data Labs, Other Data: CBC, BMP 09/23/18 05:30 09/23/18 05:30 INR, PTT Fibrinogen 448.0 mg/dL (238-498) 09/22/18 11:30 Troponin, BNP 09/22/18 09/22/18 11:30 11:30 Troponin I 0.02 B-Natriuretic Peptide 1107.4 H Troponin, BNP 09/22/18 09/22/18 11:30 11:30 Troponin I 0.02 B-Natriuretic Peptide 1107.4 H Assessment/Plan CTA chest: small to mod angela pleural effusions, no PE EKG: sinus, nl intervals, no ischemic changes tele: sinus, sinus bradycardia Shortness of breath, orthopnea - echo pending to evaluate for peripartum cardiomyopathy - symptoms improved with IV lasix - likely near euvolemic, symptoms improved - continue IV lasix - monitor daily standing weights, lytes, Cr HTN - no prior history of HTN - per patent she was anxious yesterday, BP improved after one dose of hydralazine - observe for now s/p C section on 09/17, - patient - uncomplicated
--- NOTE | 2018-09-23 12:25 | EKG ---
Test Reason : Blood Pressure : / mmHG Vent. Rate : 070 BPM Atrial Rate : 070 BPM P-R Int : 150 ms QRS Dur : 088 ms QT Int : 408 ms P-R-T Axes : 065 079 060 degrees QTc Int : 440 ms NORMAL SINUS RHYTHM WITH SINUS ARRHYTHMIA POSSIBLE LEFT ATRIAL ENLARGEMENT BORDERLINE ECG WHEN COMPARED WITH ECG OF 09-JUL-2006 23:29, NO SIGNIFICANT CHANGE WAS FOUND Confirmed by SARAH THORNE, SUSAN ([id number]) on 09/23/2018 12:25:29 PM Referred By: Confirmed By:SUSAN SMITH MD
--- NOTE | 2018-09-23 13:47 | ECHO ---
Name: OFELIA DUGGAN Exam:Adult Echocardiogram Study Date: 09/23/2018 08:57 AM Age: 38 yrs Reason For Study: , SOB Height: 67 in Weight: 250 lb BSA: 2.2 m2 MMode/2D Measurements & Calculations IVSd: 1.1 cm LA dimension: 3.1 cm LVIDd: 4.7 cm ACS: 1.9 cm LVIDs: 2.8 cm LVPWd: 1.7 cm EDV(Teich): 103.8 ml LVOT diam: 2.0 cm ESV(Teich): 29.3 ml RV S Jimenez: 14.3 cm/sec Doppler Measurements & Calculations MV E max jimenez: 153.0 cm/sec Ao V2 max: 81.0 cm/sec MV A max jimenez: 102.4 cm/sec Ao max P.6 mmHg MV E/A: 1.5 Ao V2 mean: 110.4 cm/sec MV dec time: 0.15 sec Ao mean P.6 mmHg Ao V2 VTI: 33.8 cm AI P1/2t: 558.5 msec AI max jimenez: 480.1 cm/sec MR max jimenez: 557.7 cm/sec AI max P.2 mmHg MR max P.4 mmHg AI dec slope: 251.8 cm/sec2 Med Peak E' Jimenez: 7.8 cm/sec Med E/e': 19.6 Lat Peak E' Jimenez: 6.1 cm/sec Lat E/e': 24.9 Procedure A two-dimensional transthoracic echocardiogram with color flow and Doppler was performed. The study w as technically difficult with many images being suboptimal in quality. Left Ventricle The left ventricular size, thickness and function are normal. The left ventricular ejection fraction is normal. The transmitral spectral Doppler flow pattern is normal for age. Regional wall motion abnorma lities cannot be excluded due to limited visualization. Right Ventricle The right ventricle is normal in size and function. Atria Normal left and right atrial size and function. Mitral Valve The mitral valve is not well visualized. There is no mitral valve stenosis. There is mild to moderate mitral regurgitation. Tricuspid Valve The tricuspid valve is not well visualized. There is no tricuspid stenosis. There was insufficient TR detected to calculate RV systolic pressure. Aortic Valve The aortic valve is not well visualized. No hemodynamically significant valvular aortic stenosis. Mil d to moderate aortic regurgitation. Pulmonic Valve The pulmonic valve is not well visualized. Great Vessels The aortic root is not well visualized. Pericardium/Pleura There is no pericardial effusion. Interpretation Summary The left ventricular ejection fraction is normal. The transmitral spectral Doppler flow pattern is normal for age. The study was technically difficult with many images being suboptimal in quality. Regional wall motion abnormalities cannot be excluded due to limited visualization. The mitral valve is not well visualized. There is mild to moderate mitral regurgitation. There was insufficient TR detected to calculate RV systolic pressure. Mild to moderate aortic regurgitation. MD Julius Jordan 09/23/2018 01:46 PM
--- NOTE | 2018-09-23 14:37 | DS ---
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 She noticed shortness of breath while sitting at home with baby , worse with lying flat. elevated BNP, no acute ST T changes responded to IV Lasix, post (C section at [facility] on 09/17/2018) concerned of PE and Post Cardiomyopathy, CT chest -ve for PE, elevated BNP, ECHO normal EF poor quality mild to moderate, AR TR and MR , discussed with Cardiology compression , recommended unlikely Post cardiomyopathy , most likely volume over load during delivery recommended Po diuretics on Dc once patient is euvolumic , patient feels very comfortable since she recived IV lasix able to sleep on her back , patient feels comfortable normal EKG trop I and hemodynamically stable will DC her onPo lasix 20 mg daily, low salt Diet wt reduction and F/U iwth Dr Espitia in a wk for re evaluation. Condition: Stable - Instructions Diet, Activity, Other Instructions: low salt, low calory Referrals: Carmel Espitia MD [Staff Physician] - 2 Weeks Disposition: HOME - Home Medications Comprehensive Discharge Medication List: Ambulatory Orders Iron 2 tab PO DAILY 09/06/18 Amoxicillin - [Amoxicillin 500mg Capsule -] 500 mg PO BID #14 capsule 09/23/18 Furosemide [Lasix -] 20 mg PO DAILY #7 tablet 09/23/18
[2018-09-24 07:12] LABS: SERUM IRON SATURATION 8 % (15-55); TOTAL IRON BINDING CAPACITY 416 ug/dL (250-450); UIBC 381 ug/dL (131-425)
[2018-09-24] MEDS ORDERED: FUROSEMIDE 20 MG TABLET (FP) PO SCH (10:00)
== END 2018-09-23 15:11 | disposition home or self-care (01) | DRG 561 ==
LOC: JER 10:17 → JERBED 15:49 → J4W 17:33
PROVIDERS: ADMIT Hospitalist; ATTEND Internal Medicine
DX: O90.89 Other complications of the puerperium, not elsewhere classified (principal); Z68.39 Body mass index [BMI] 39.0-39.9, adult; D50.0 Iron deficiency anemia secondary to blood loss (chronic); E66.9 Obesity, unspecified; I10 Essential (primary) hypertension; E87.79 Other fluid overload; J81.0 Acute pulmonary edema; J90 Pleural effusion, not elsewhere classified
CPT/HCPCS: 36415; 71046-TC-FY; 71275-TC; 80053; 81003; 82550; 82553; 82728; 83540; 83550; 83615; 83735; 83880; 84100; 84443; 84466; 84484; 85025; 85379; 85384; 93005; 93010; 93306-TC; 99285-25; J1644

== ENCOUNTER 2018-12-29 07:03 | Day surgery (SDC) | payer OTHER ==
[2018-12-28 14:17] VITALS: BMI 40.7
[2018-12-29 08:41] VITALS: TEMP 97.6
[2018-12-29 09:38] VITALS: BP 118/76; PULSE 73
== END 2018-12-29 09:38 | disposition home or self-care (01) ==
LOC: JASU-ENDO 07:03
PROVIDERS: ATTEND Internal Medicine Gastroenterology
PROC: 0DJD8ZZ Inspection of Lower Intestinal Tract, Via Natural or Artificial Opening Endoscopic (ICD-10-PCS; principal; 2018-12-29 08:15)
DX: K62.5 Hemorrhage of anus and rectum (principal)
CPT/HCPCS: 84703

== ENCOUNTER 2021-11-06 13:34 | Emergency (ER) | payer OTHER ==
[2021-11-06 13:43] VITALS: BP 114/60; PULSE 78; TEMP 99.3; BMI 34.1
[2021-11-06 16:54] LABS: EPI CELLS >36 /uL (0-25.1); HYALINE CASTS 2 /uL (0-3.1); URINE APPEARANCE CLEAR; URINE BACTERIA 3147 /uL (0-1359); URINE BILIRUBIN NEGATIVE (NEGATIVE); URINE COLOR YELLOW; URINE GLUCOSE (UA) NEGATIVE (NEGATIVE); URINE KETONE NEGATIVE (NEGATIVE); URINE LEUK ESTERASE NEGATIVE (NEGATIVE); URINE NITRITE NEGATIVE (NEGATIVE); URINE PROTEIN NEGATIVE (NEGATIVE); URINE RBC 11 /uL (0-23.9); URINE UROBILINOGEN 0.2 mg/dL (0.2-1.0); URINE WBC 8 /uL (0-25.8)
[2021-11-06 17:09] LABS: BASO % 0.7 % (0-2.0); EOS % 1.6 % (0-4.5); HEMATOCRIT 28.9 % (32.4-45.2); HEMOGLOBIN 9.8 GM/dL (10.7-15.3); LYMPH % 22.2 % (8-40); MCH 28.1 pg (25.7-33.7); MCHC 33.8 g/dl (32.0-36.0); MEAN PLT VOLUME 9.6 fl (7.5-11.1); MONO % 5.1 % (3.8-10.2); NEUT % 70.4 % (42.8-82.8); PLATELET COUNT 185 10^3/uL (134-434); RBC 3.48 M/mm3 (3.60-5.2); RDW 21.4 % (11.6-15.6); WHITE BLOOD COUNT 8.8 K/mm3 (4.0-10.0)
[2021-11-06 17:37] LABS: CALCIUM 8.5 mg/dL (8.5-10.1)
[2021-11-06 17:38] LABS: ALBUMIN 3.5 g/dl (3.4-5.0)
[2021-11-06 17:40] LABS: CREATININE 0.7 mg/dL (0.55-1.3)
[2021-11-06 17:42] LABS: BILIRUBIN,TOTAL 0.3 mg/dL (0.2-1); TOT PROT 6.5 g/dl (6.4-8.2)
[2021-11-06 18:06] LABS: ANISOCYTOSIS 2+; MACROCYTOSIS 1+
[2021-11-06 18:44] LABS: PLATELET ESTIMATE ADEQUATE
== END 2021-11-06 18:12 | disposition home or self-care (01) ==
LOC: JERFT 13:34
DX: N93.9 Abnormal uterine and vaginal bleeding, unspecified (principal)
CPT/HCPCS: 36415; 80053; 81003; 84702; 85025; 86850; 86900; 86901; 87077; 87086; 99284-25

== ENCOUNTER 2021-11-16 07:50 | Emergency (ER) | payer OTHER ==
[2021-11-16 08:16] VITALS: BP 130/78; PULSE 55; TEMP 98.2; BMI 31.8
== END 2021-11-16 09:23 | disposition home or self-care (01) ==
LOC: JER 07:50
DX: R00.1 Bradycardia, unspecified (principal)
CPT/HCPCS: 93005; 93010; 99283-25

== ENCOUNTER 2022-05-10 15:02 | Emergency (ER) | payer OTHER ==
[2022-05-10 15:11] VITALS: BP 117/65; PULSE 82; RESP 19; TEMP 97.9; BMI 29.7
== END 2022-05-10 17:25 | disposition home or self-care (01) ==
LOC: JERFT 15:02
DX: S96.911A Strain of unspecified muscle and tendon at ankle and foot level, right foot, initial encounter (principal); X50.0XXA Overexertion from strenuous movement or load, initial encounter
CPT/HCPCS: 73610-TC-RT-FY; 73630-TC-RT-FY; 99283-25